=== PATIENT | male | born 1950 | race Caucasian/White ===

== ENCOUNTER → 2021-03-13 11:13 | Outpatient (CLI) | payer MEDICARE, SELFPAY ==
--- NOTE | ~2021-03-13 | XR_ITS ---
EXAMINATION: XR hip RT min 2V DATE: 03/13/2021 11:24 INDICATION: Right hip pain. TECHNIQUE: 3 views of right hip were obtained. COMPARISON: None. FINDINGS: Bone alignment is normal. No fracture. There is an old healed fracture of femoral diaphysis . There is mild right hip osteoarthritis. IMPRESSION: 1. Mild right hip osteoarthritis. Reviewed, dictated and finalized at location A.
== END ==
PROVIDERS: PCP Internal Medicine; Visit Provider Internal Medicine
DX: M25.551 Pain in right hip (principal); M16.11 Unilateral primary osteoarthritis, right hip
CPT/HCPCS: 73502

== ENCOUNTER → 2021-08-13 14:19 | Outpatient (CLI) | payer MEDICARE, SELFPAY ==
--- NOTE | ~2021-08-13 | XR_ITS ---
XR shoulder RT min 2V 08/13/2021 14:40 Indication: Right shoulder pain. Procedure: 4 views of the right shoulder Comparison: No prior studies for comparison. Findings: No fracture, subluxation or dislocation. There are mild degenerative changes of the glenohu meral joint. Surrounding osseous structures and soft tissues are unremarkable. The lungs are unremark able. Impression: 1: Mild osteoarthritis of the glenohumeral joint. Reviewed, dictated and finalized at location A. Impression: 1: Mild osteoarthritis of the glenohumeral joint.
== END ==
PROVIDERS: PCP Family Medicine; Visit Provider Family Medicine
DX: M19.011 Primary osteoarthritis, right shoulder (principal)
CPT/HCPCS: 73030

== ENCOUNTER → 2021-09-18 17:45 | Outpatient (CLI) | payer MEDICARE, SELFPAY ==
--- NOTE | ~2021-09-18 | MR_ITS ---
EXAMINATION: MR shoulder RT wo con DATE: 09/18/2021 19:00 INDICATION: Right shoulder pain TECHNIQUE: Magnetic resonance imaging (MRI) of the right shoulder was performed without intravenous c ontrast. Sequences included axial PD-weighted FS FSE, coronal oblique PD-weighted FS FSE, coronal obl ique T2-weighted FS FSE, sagittal PD-weighted FS FSE, and sagittal T1-weighted SE. COMPARISON: None. FINDINGS: Evaluation is limited by mild motion artifact or blurring to some degree on all sequences. Coracoacromial arch: The acromion undersurface is curved in morphology (type II). There is thickening of the coracoacromia l ligament. Moderate acromioclavicular osteoarthritis. Rotator cuff: Moderate supraspinatus and infraspinatus tendinopathy. There is a large articular sided tear involvin g from one half to two thirds of the thickness of the foot with of both tendons. There appears likely to be full-thickness component to the tear with involvement of small portion of the articular side o f the conjoined portion of the tendon. The torn articular sided the tendons are retracted approximate ly 5 cm medially positioned along the level of the rim of the glenoid. The teres minor tendon is norm al. Severe subscapularis tendinopathy with additional partial tear involving the cephalad third of th e tendon. There is a ragged tear margin with residual frayed tendon material extending up to 1.5 cm m edially from the lesser tuberosity. There is mild fatty atrophy of the infraspinatus muscle belly and to lesser degree the supraspinatus and subscapularis muscle bellies. There is relatively prominent f eathery edema involving the infraspinatus muscle belly suggesting acute blood moderate grade muscle s train. Biceps tendon, glenoid labrum and glenohumeral cartilage: Tendinopathy and partial-thickness tear of the intra-articular portion of the long head biceps tendon which appears attenuated. The humeral cartilage and glenoid labrum appear normal although sensitivit y is mildly decreased by the motion. Fluid: Small glenohumeral joint effusion. There is increased fluid in the subacromial/subdeltoid bursa which could be due to bursitis or communication of joint fluid through the suspected full-thickness compon ent to the rotator cuff tear. No loose osteochondral bodies. Bones: Normal marrow signal with no edema, fracture or abnormal marrow replacing process. Mild cystic change at the lesser tuberosity likely related to the subscapularis tendon disease. IMPRESSION: 1. Large moderate to severe articular sided tear of the supraspinatus and infraspinatus tendons with likely small full-thickness component at the conjoined portion of the tendons which is likely chronic given the associated mild fatty atrophy but with likely more acute low to moderate grade strain of t he infraspinatus muscle belly accounting for the muscular edema. 2. Ragged partial tear involving the cephalad third of the subscapularis tendon located approximately 1.5 cm from the lesser tuberosity. 3. Moderate acromioclavicular osteoarthritis. 4. Evaluation mildly limited by mild motion artifact or blurring on all sequences. Reviewed, dictated and finalized at location B. IMPRESSION: 1. Large moderate to severe articular sided tear of the supraspinatus and infra spinatus tendons with likely small full-thickness component at the conjoined po rtion of the tendons which is likely chronic given the associated mild fatty at rophy but with likely more acute low to moderate grade strain of the infraspina tus muscle belly accounting for the muscular edema. 2. Ragged partial tear involving the cephalad third of the subscapularis tendon located approximately 1.5 cm from the lesser tuberosity. 3. Moderate acromioclavicu
== END ==
PROVIDERS: PCP Family Medicine; Visit Provider Orthopaedic Surgery
DX: M25.511 Pain in right shoulder (principal); M75.101 Unspecified rotator cuff tear or rupture of right shoulder, not specified as traumatic; M19.011 Primary osteoarthritis, right shoulder
CPT/HCPCS: 73221

== ENCOUNTER 2022-03-14 09:35 | Outpatient (CLI) | payer MEDICARE, SELFPAY ==
[2022-03-14 19:51] LABS: Alanine Aminotransferase 31 U/L (6-50); Albumin Level 4.6 g/dL (3.5-5.1); Alkaline Phosphatase 69 U/L (38-126); Anion Gap 13 mmol/L (8-16); Aspartate Amino Transferase 34 U/L (17-59); Bilirubin,Total 2.1 mg/dL (0.2-1.3); Blood Urea Nitrogen 20 mg/dL (9-20); Calcium 9.2 mg/dL (8.4-10.2); Carbon Dioxide 25 mmol/L (22-30); Chloride 104 mmol/L (98-107); Cholesterol 142 mg/dL (0-200); Estimated Glomerular Filt Rate > 60; Glucose 117 mg/dL (65-110); HDL Direct 37 mg/dL; Potassium 4.3 mmol/L (3.4-5.0); Sodium 142 mmol/L (137-145); Triglycerides 179 mg/dL (<150)
[2022-03-14 20:03] LABS: LDL Cholesterol Direct 70 mg/dL
[2022-03-14 20:23] LABS: Prostate Specific Antigen 4.5 ng/mL (< OR = 4.0)
== END 2022-03-14 09:36 | disposition home or self-care (01) ==
LOC: ANHGOSHLAB 09:37
PROVIDERS: PCP Family Medicine; Visit Provider Family Medicine
DX: E78.2 Mixed hyperlipidemia (principal); I10 Essential (primary) hypertension; Z12.5 Encounter for screening for malignant neoplasm of prostate
CPT/HCPCS: 36415; 80053; 80061; 84153; G0103

== ENCOUNTER → 2022-07-31 12:30 | Outpatient (CLI) | payer MEDICARE, SELFPAY ==
--- NOTE | ~2022-07-31 | XR_ITS ---
XR knee LT 3V DATE: 07/31/2022 12:55 INDICATION: Left knee pain following a fall on 07/28/2022 TECHNIQUE: Honeygo, standing AP, PA and lateral views COMPARISON: None FINDINGS: Prominent enthesopathy of the superior pole of patella at the quadriceps tendon insertion. 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 Patellar fracture is less likely. Mild tricompartment osteoarthritis. No fracture or dislocation or joint effusion, radiopaque intra-articular loose body. No periosteal re action or bone destruction. IMPRESSION: Mild tricompartment osteoarthritis Probable bipartite patella; if there is concern alternatively for lateral patellar fracture, consider further evaluation by CT or MR examination Reviewed, dictated and finalized at location L. LOPE MAKER IMPRESSION: Mild tricompartment osteoarthritis Probable bipartite patella; if there is concern alternatively for lateral mccurdy lar fracture, consider further evaluation by CT or MR examination
== END ==
PROVIDERS: PCP Family Medicine; Visit Provider Family Medicine
DX: M25.562 Pain in left knee (principal); M17.12 Unilateral primary osteoarthritis, left knee
CPT/HCPCS: 73562

== ENCOUNTER 2022-09-19 09:22 | Outpatient (CLI) | payer MEDICARE, SELFPAY ==
[2022-09-23 21:20] LABS: PSA, Free 0.85 ng/mL; Percent Free Prostate Spec Ag 21 % (>25)
== END 2022-09-19 09:23 | disposition home or self-care (01) ==
LOC: ANHGOSHLAB 09:25
PROVIDERS: PCP Family Medicine; Visit Provider Family Medicine
DX: R97.20 Elevated prostate specific antigen [PSA] (principal)
CPT/HCPCS: 36415; 84153; 84154

== ENCOUNTER 2022-12-10 09:22 | Outpatient (CLI) | payer MEDICARE, SELFPAY ==
[2022-12-10 14:46] LABS: Hematocrit 46.9 % (42.0-52.0); Hemoglobin 15.2 g/dL (14.0-18.0); Mean Corpuscular HGB Conc 32.4 g/dl (32-36); Mean Corpuscular Hemoglobin 30.3 pg (26-34); Mean Corpuscular Volume 93.4 fl (80-100); Mean Platelet Volume 10.8 fl (7.4-10.4); Platelet Count Result 178 k/mm3 (150-375); Red Blood Count 5.02 M/mm3 (4.6-6.20); White Blood Count 21.1 K/mm3 (4.5-10.0)
[2022-12-10 19:53] LABS: Monocytes Absolute Manual 0.63 K/mm3 (0.1-0.90); Monocytes Percent Manual 3 % (3-9); Neutrophils Percent Manual 24 % (46-73); Platelet Estimate Adequate (Adequate); Total Cells Counted 100
[2022-12-10 19:54] LABS: Schistocytes None Seen (NORMAL)
== END 2022-12-10 09:23 | disposition home or self-care (01) ==
LOC: ANHGOSHLAB 09:24
PROVIDERS: PCP Family Medicine; Visit Provider Internal Medicine Cardiovascular Disease
DX: I48.91 Unspecified atrial fibrillation (principal)
CPT/HCPCS: 36415; 84443; 85025

== ENCOUNTER 2022-12-25 09:34 | Outpatient (CLI) | payer MEDICARE, SELFPAY ==
--- NOTE | 2022-12-25 09:50 | ECHO_ITS ---
Patient Info Name: Abdi Borjas Age: 72 years : 1950 Gender: Male Ht: 74 in Wt: 250 lbs BSA: 2.46 m2 HR: 61 bpm BP: 154 / 90 mmHg Heart Rhythm: Atrial Fibrillation Technical Quality: Fair Exam Date: 12/25/2022 10:11 AM Exam Location: [facility] Patient Status: Outpatient Admit Date: 12/25/2022 Staff Ordering Physician: Madi Byrne DO Custom Bow Maker: Bina Roberts RDCS Attending Provider: Madi Byrne DO Referring Physician: Chavez CASILLAS; Exam Type: CA echo dop color flow w con Study Info Complete two-dimensional, color flow and Doppler transthoracic echocardiogram is performed with contrast to opacify the left ventricle and to improve the deliniation of the left ventricle endocardial borders. Contrast/Agitated Saline Contrast/Ag. Saline: Definity Amount: 2.00 ml Administered By: Bina Roberts [facility] New IV Access: Left Site Condition: IV removed Summary 1. Definity contrast administered improved wall motion interpretation. 2. Left ventricular chamber dimension is mildly enlarged. 3. Left ventricular systolic function is normal, estimated at 55-60%. 4. The left ventricular diastolic function is abnormal. 5. E/e' 10 is mildly elevated. 6. Atrial fibrillation. 7. Left atrial chamber dimension is moderately enlarged. 8. Right atrial chamber dimension is moderately enlarged. 9. There is mild to moderate aortic valve regurgitation. 10. There is mild mitral valve regurgitation. 11. There is mild tricuspid valve regurgitation. 12. No pulmonary hypertension, estimated pulmonary arterial systolic pressure is 32 mmHg. Left Ventricle E/e' 10 is mildly elevated. Definity contrast administered improved wall motion interpretation. Atrial fibrillation. Left ventricular chamber dimension is mildly enlarged. Left ventricular systolic function is normal, estimated at 55-60%. The left ventricular diastolic function is abnormal. Right Ventricle Right ventricular chamber dimension is normal. Right ventricular systolic function is normal. Left Atria Left atrial chamber dimension is moderately enlarged. Right Atria Right atrial chamber dimension is moderately enlarged. Aortic Valve The aortic valve is trileaflet. There is no aortic valve stenosis. There is mild to moderate aortic valve regurgitation. Pulmonic Valve There is no pulmonic regurgitation. Mitral Valve There is no mitral valve stenosis. There is mild mitral valve regurgitation. Tricuspid Valve There is mild tricuspid valve regurgitation. No pulmonary hypertension, estimated pulmonary arterial systolic pressure is 32 mmHg. Pericardium/Pleural There is no pericardial effusion. Inferior Vena Cava Normal inferior vena cava with >50% collapse upon inspiration consistent with normal right atrial pressure, 5 mmHg. Aorta The aortic root size at the sinus of Valsalva is normal. Left Ventricular Outflow Tract Name Value Normal LVOT 2D LVOT Diameter 2.10 cm LVOT Doppler LVOT Peak Gradient 4 mmHg LVOT Mean Gradient 2 mmHg LVOT VTI 20.19 cm LVOT VTI/AV VTI Ratio
[2022-12-25] MEDS: PERFLUTREN LIPID MICROSPHERES 1.5 ML VIAL DILUTED TO 10 ML TOTAL VOLUME IV PUSH (10:45)
== END 2022-12-25 09:35 | disposition home or self-care (01) ==
PROVIDERS: PCP Family Medicine; Visit Provider Internal Medicine Cardiovascular Disease
DX: I48.91 Unspecified atrial fibrillation (principal); I08.3 Combined rheumatic disorders of mitral, aortic and tricuspid valves
CPT/HCPCS: C8929; Q9957

== ENCOUNTER 2023-06-03 09:43 | Outpatient (CLI) | payer MEDICARE, SELFPAY ==
[2023-06-03 19:25] LABS: Alanine Aminotransferase 32 U/L (6-50); Albumin Level 4.4 g/dL (3.5-5.1); Alkaline Phosphatase 59 U/L (38-126); Anion Gap 9 mmol/L (8-16); Aspartate Amino Transferase 53 U/L (17-59); Blood Urea Nitrogen 22 mg/dL (9-20); Calcium 9.2 mg/dL (8.4-10.2); Carbon Dioxide 29 mmol/L (22-30); Chloride 102 mmol/L (98-107); Cholesterol 132 mg/dL (0-200); Estimated Glomerular Filt Rate > 60; Glucose 100 mg/dL (65-110); HDL Direct 41 mg/dL; Potassium 3.9 mmol/L (3.4-5.0); Sodium 140 mmol/L (137-145); Triglycerides 156 mg/dL (<150)
[2023-06-03 19:36] LABS: LDL Cholesterol Direct 61 mg/dL
== END 2023-06-03 09:44 | disposition home or self-care (01) ==
LOC: ANHGOSHLAB 09:44
PROVIDERS: PCP Family Medicine; Visit Provider Internal Medicine Cardiovascular Disease
DX: E78.2 Mixed hyperlipidemia (principal)
CPT/HCPCS: 36415; 80053; 80061

== ENCOUNTER 2023-11-05 09:40 | Outpatient (CLI) | payer MEDICARE, SELFPAY ==
--- NOTE | ~2023-11-05 | XR_ITS ---
Right Knee Technique: AP, lateral, and sunrise views were obtained. Clinical History: Pain Findings: No fracture or dislocation is seen. Osseous alignment is anatomic. There is mild to moderat e tricompartmental degenerative change. Soft tissues are unremarkable. No joint effusion is seen. Impression: Mild to moderate tricompartmental degenerative change. Reviewed, dictated and finalized at location . Impression: Mild to moderate tricompartmental degenerative change.
== END 2023-11-05 09:41 ==
LOC: GOSHIMG 09:42
PROVIDERS: PCP Family Medicine; Visit Provider Family Medicine
DX: M25.561 Pain in right knee (principal); R93.6 Abnormal findings on diagnostic imaging of limbs
CPT/HCPCS: 73564

== ENCOUNTER 2024-02-24 12:41 | Emergency (ER) | payer MEDICARE, SELFPAY ==
[2024-02-24 12:53] VITALS: BP 115/69; PULSE 80; RESP 16; TEMP 36.6; O2SAT 98
[2024-02-24 13:11] LABS: EDSTREPNEGPOS1 Negative (Negative)
--- NOTE | 2024-02-24 13:11 | ED.URI ---
HPI - URI/Sore Throat General Chief Complaint: Upper Respiratory Infection Stated Complaint: SORE THROAT Time Seen by Provider: 02/24/24 13:07 Source: patient and RN notes reviewed Mode of arrival: ambulatory Limitations: no limitations History of Present Illness HPI Narrative: Patient presents today complaining of a mild sore throat and nasal congestion since yesterday morning. States sore throat is significantly improved since yesterday. Denies any additional symptoms. Currently rates his pain 2/10 and took an [id number] medicine this morning which did provide some relief. States girlfriend was diagnosed with strep throat today and wanted to come in for evaluation. Related Data Home Medications Medication Instructions Recorded Confirmed zinc 50 mg tablet 50 mg PO DAILY 08/02/20 02/16/24 meloxicam 7.5 mg tablet 7.5 mg PO .prn 11/24/23 02/16/24 Allergies Allergy/AdvReac Type Severity Reaction Status Date / Time No Known Allergies Allergy Verified 02/24/24 13:09 Review of Systems Review of Systems: CONSTITUTIONAL: Denies body aches, fever, chills, or sweats. EYES: Denies visual changes, redness, or discharge. ENT: Denies rhinorrhea, or otalgia.+ congestion, sore throat CARDIOVASCULAR: Denies chest pain, palpitations, or edema. RESPIRATORY: Denies cough or dyspnea. GASTROINTESTINAL: Denies abdominal pain, nausea, vomiting, or diarrhea. GENITOURINARY: Denies dysuria or hematuria. SKIN: Denies rash, itching, or wounds. MUSCULOSKELETAL: Denies back pain, joint pain, or myalgia. NEUROLOGIC: Denies headache, numbness, tingling, or weakness. PSYCH: Denies depression or anxiety. [facility] Past Medical History Medical History Achilles tendinitis of left lower extremity Acute pain of both knees Ankle pain, left Degenerative rupture of left Achilles tendon Hip pain, bilateral Hip pain, right Hyperlipidemia, mixed Pain in both hands Right shoulder pain Right tennis elbow Rotator cuff tear, right Shoulder pain, acute Family History Family History Mother Hypertension Patient's mother is Father Family history of respiratory disorder Other Depression Social History Social History Smoking status: Never smoker Alcohol intake: current Substance use: never Substance use type: does not use Do You Feel Safe in your Home?: Yes Lack of Transportation: No Lack of Food: Never True Current Housing: I Have Housing Concerned About Future Housing: No Difficulty Paying Gas/Electric Bills: No Difficulty Paying for Meds: No Currently Unemployed: No Education: Bachelor's Degree Difficulty w/ Childcare or Family Care: No Living arrangements: with family Occupation/Education: retired Gender identity (if verbalized by the patient): Male Agree to blood products: Yes Comments At time of signature, I have reviewed and agree with nursing past medical, surgical, social and family history unless otherwise noted. Please see nursing chart for further information. There is no relevant family history pertinent to the presenting complaint Exam Narrative: GENERAL: Well-appearing, well-nourished, and in no acute distress. HEAD: Normocephalic, atraumatic. EYES: EOMI. No redness or drainage. Conjunctivae normal. ENT: Mucous membranes pink and moist. Nares clear. No rhinorrhea. TMs normal bilaterally. Throat mildly erythematous without edema or exudate. Uvula midline. NECK: Normal AROM. Supple. No lymphadenopathy. CHEST: No respiratory distress. Clear to auscultation. HEART: Regular rate and rhythm. No murmur appreciated. EXTREMITIES: Normal range of motion. No edema. SKIN: Warm, dry, no rash. Capillary refill normal. Normal skin turgor. NEURO: No focal deficits. Alert and oriented x3.
== END 2024-02-24 13:16 | disposition home or self-care (01) ==
PROVIDERS: Emergency Provider Nurse Practitioner; PCP Family Medicine
DX: J02.9 Acute pharyngitis, unspecified (principal); E78.2 Mixed hyperlipidemia
CPT/HCPCS: 87081; 87880; 99213; G0463

== ENCOUNTER 2024-05-05 09:42 | Outpatient (CLI) | payer MEDICARE, SELFPAY ==
[2024-05-05 13:56] LABS: Alanine Aminotransferase 27 U/L (6-50); Albumin Level 4.6 g/dL (3.5-5.1); Alkaline Phosphatase 55 U/L (38-126); Anion Gap 5 mmol/L (4-12); Aspartate Amino Transferase 72 U/L (17-59); Bilirubin,Total 1.6 mg/dL (0.2-1.3); Blood Urea Nitrogen 20 mg/dL (9-20); Calcium 9.6 mg/dL (8.4-10.2); Carbon Dioxide 31 mmol/L (22-30); Chloride 103 mmol/L (98-107); Cholesterol 152 mg/dL (0-200); Estimated Glomerular Filt Rate > 60; Glucose 99 mg/dL (65-110); HDL Direct 45 mg/dL; Sodium 139 mmol/L (137-145); Triglycerides 156 mg/dL (<150)
[2024-05-05 14:07] LABS: LDL Cholesterol Direct 69 mg/dL
[2024-05-05 14:25] LABS: Prostate Specific Antigen 4.9 ng/mL (< OR = 4.0)
[2024-05-05 14:31] LABS: Basophils Absolute Auto 0.1 K/mm3 (0.0-0.1); Basophils Percent Auto 0.2 % (0.2-1.2); Eosinophils Absolute Auto 0.1 K/mm3 (0-0.3); Eosinophils Percent Auto 0.4 % (0-4.4); Hematocrit 50.9 % (42.0-52.0); Hemoglobin 16.5 g/dL (14.0-18.0); Immature Granulocyte Absolute 0.07 K/mm3 (0.00-0.031); Immature Granulocyte Percent A 0.3 % (0-0.5); Lymphocytes Percent Auto 66.9 % (18.3-44.2); Mean Corpuscular HGB Conc 32.4 g/dl (32-36); Mean Corpuscular Hemoglobin 29.8 pg (26-34); Mean Platelet Volume 10.5 fl (7.4-10.4); Monocytes Absolute Auto 0.8 K/mm3 (0.1-0.6); Monocytes Percent Auto 3.2 % (2.6-8.5); Neutrophils Absolute Auto 7.2 K/mm3 (1.3-6.7); Platelet Count Result 210 k/mm3 (150-375); Red Blood Count 5.53 M/mm3 (4.6-6.20); Red Cell Distribution Width 13.3 % (11.5-14.5); White Blood Count 24.8 K/mm3 (4.5-10.0)
[2024-05-05 14:56] LABS: Chlamydia trachomatis NOT DETECTED (NOT DETECTE); Neisseria gonorrhoeae PCR NOT DETECTED (NOT DETECTE)
[2024-05-05 15:03] LABS: Platelet Estimate Adequate (Adequate); Schistocytes None Seen
[2024-05-05 15:04] LABS: Atypical Lymphocytes Present; Smudge Cells PRESENT
[2024-05-06 06:54] LABS: Rapid Plasma Reagin Non-Reactive (NonReactive)
== END 2024-05-05 09:43 | disposition home or self-care (01) ==
PROVIDERS: PCP Family Medicine; Visit Provider Family Medicine
DX: R53.83 Other fatigue (principal); Z13.228 Encounter for screening for other metabolic disorders; Z12.5 Encounter for screening for malignant neoplasm of prostate; Z72.51 High risk heterosexual behavior; Z13.220 Encounter for screening for lipoid disorders
CPT/HCPCS: 36415; 80053; 80061; 84153; 85025; 86592; 86695; 86696; 87491; 87591; G0103

== ENCOUNTER 2024-05-05 10:00 | Outpatient (CLI) | payer MEDICARE, SELFPAY ==
--- NOTE | ~2024-05-05 | XR_ITS ---
EXAMINATION: XR knee LT min 4V DATE: 05/05/2024 10:14 INDICATION: Left knee pain. TECHNIQUE: 4 views of left knee increasing standing views were obtained. COMPARISON: Left knee radiographs 07/31/2022 FINDINGS: Alignment is normal. No fracture. There is moderate osteoarthritis of medial compartment an d mild osteoarthritis of lateral and patellofemoral compartments. No knee joint effusion. IMPRESSION: 1. Moderate left knee osteoarthritis. Reviewed, dictated and finalized at location A. LOPER DESIGNER
== END 2024-05-05 10:01 | disposition home or self-care (01) ==
LOC: GOSHIMG 10:01
PROVIDERS: PCP Family Medicine; Visit Provider Family Medicine
DX: M17.12 Unilateral primary osteoarthritis, left knee (principal)
CPT/HCPCS: 73564

== ENCOUNTER 2024-07-20 11:22 | Outpatient (CLI) | payer MEDICARE, SELFPAY ==
[2024-07-20 11:46] LABS: Basophils Absolute Auto 0.1 K/mm3 (0.0-0.1); Basophils Percent Auto 0.3 % (0.2-1.2); Eosinophils Absolute Auto 0.1 K/mm3 (0-0.3); Eosinophils Percent Auto 0.5 % (0-4.4); Hematocrit 47.4 % (42.0-52.0); Hemoglobin 15.7 g/dL (14.0-18.0); Immature Granulocyte Absolute 0.07 K/mm3 (0.00-0.031); Immature Granulocyte Percent A 0.3 % (0-0.5); Lymphocytes Absolute Auto 13.81 K/mm3 (0.9-3.2); Lymphocytes Percent Auto 65.6 % (18.3-44.2); Mean Corpuscular HGB Conc 33.1 g/dl (32-36); Mean Corpuscular Hemoglobin 29.6 pg (26-34); Mean Corpuscular Volume 89.4 fl (80-100); Mean Platelet Volume 9.9 fl (7.4-10.4); Monocytes Absolute Auto 0.9 K/mm3 (0.1-0.6); Neutrophils Absolute Auto 6.2 K/mm3 (1.3-6.7); Neutrophils Percent Auto 29.3 % (45.5-73.1); Platelet Count Result 221 k/mm3 (150-375); Red Cell Distribution Width 13.7 % (11.5-14.5); White Blood Count 21.1 K/mm3 (4.5-10.0)
--- OUTSIDE RECORDS SUMMARY | 2024-07-20 13:18 | XMS_ITS | Patient Health Summary ---
Author Organization [facility] Address [address] [place] [address] Care Team Providers Care Hedis Review Nurse Name Role Phone Abdi Patel MD Primary Care Provider Note from [facility],non-owned Affiliates and Associated Physician Practices is amultiple site organization consisting of ambulatory clinics and hospital sitesin [place], [place], [place] and [place]. This disclosure is being madepursuant to the Care Everywhere program and may not contain all information available regarding this patient. Last updated 18.[facility] Immunizations * HEP A VACCINE, ADULT(Given 01/27/2016) * HEP B VACCINE ADOL/ADULT 2 DOSE(Given 01/27/2016) * HEP B VACCINE, ADULT 3 DOSE(Given 03/03/2016) * INFLUENZA VACCINE, HIGH-DOSE, QUADR. (FLUZONE HIGH-DOSE QUADRIVALENT; 65Y+), 0.7 ML (HD-IIV4)(Given 01/27/2016) Social History Tobacco Use Types Packs/Day Years Used Date Smoking Tobacco: Never Assessed Sex and Gender Information Value Date Recorded Sex Assigned at Not on file Gender Identity Not on file Sexual Orientation Not on file Care Teams Hedis Review Nurse Relationship Specialty Start Date End Date Abdi Paetl MD [address] [place] [address] PCP - General Internal Medicine 01/27/16
--- OUTSIDE RECORDS SUMMARY | 2024-07-20 13:18 | XMS_ITS | Referral Summary ---
Author Organization [facility] Address [address] [place] [address] Care Team Providers Care Machine Clothing Replacer Name Role Phone Abdi Patel MD Primary Care Provider [phone] Source Comments [facility],non-owned Affiliates and Associated Physician Practices is amultiple site organization consisting of ambulatory clinics and hospital sitesin [place], [place], [place] and [place]. This disclosure is being madepursuant to the Care Everywhere program and may not contain all information available regarding this patient. Last updated 18.[facility] Immunizations Name Administration Dates Next Due HEP A VACCINE, ADULT 01/27/2016 HEP B VACCINE ADOL/ADULT 2 DOSE 01/27/2016 HEP B VACCINE, ADULT 3 DOSE 03/03/2016 INFLUENZA VACCINE, HIGH-DOSE , QUADR. (FLUZONE HIGH-DOSE QUADRIVALENT; 65Y+), 0.7 ML (HD-IIV4) 01/27/2016 Social History Tobacco Use Types Packs/Day Years Used Date Smoking Tobacco: Never Assessed Sex and Gender Information Value Date Recorded Sex Assigned at Not on file Gender Identity Not on file Sexual Orientation Not on file Plan of Treatment Not on file Care Teams Machine Clothing Replacer Relationship Specialty Start Date End Date Abdi Patel MD [address] [place] [address] PCP - General Internal Medicine 01/27/16
--- OUTSIDE RECORDS SUMMARY | 2024-07-20 13:18 | XMS_ITS | Encounter Summary ---
Author Organization [facility] ([facility] Address [address] [place] [address] Care Team Providers Care Graduate Studies Dean Name Role Phone Unavailable Primary Care Provider Unavailabl e Reason for Visit * Reason Comments Establish Care Encounter Details Date Type Department Care Team (Late st Contact Info) Description 07/20/2024 10:30 AM UPHOLSTERY TECHNICIAN Office Visit [facility] Oncology and Hematology - [place] [address] [place] [address] [facility] [address] [place] [address] Galen Velasquez MD [address] [facility] [address] [place] [address] Lymphocytosis (Primary Dx) Social History Tobacco Use Types Packs/Day Years Used Date Smoking Tobacco: Never Smokeless Tobacco: Never Alcohol Use Standard Drinks/Week Comments Yes 0 (1 standard drink = 0.6 oz pur e alcohol) Occasionally Sex and Gender Information Value Date Recorded Sex Assigned at Not on file Legal Sex Male 2:50 PM UPHOLSTERY TECHNICIAN Gender Identity Not on file Sexual Orientation Not on file documented as of this encounter Last Filed Vital Signs Vital Sign Reading Time Taken Comments Blood Pressure 137/86 07/20/2024 10:38 AM UPHOLSTERY TECHNICIAN Pulse 69 07/20/2024 10:38 AM UPHOLSTERY TECHNICIAN Temperature 36.5 C (97.7 F) 07/20/2024 10:38 AM UPHOLSTERY TECHNICIAN Respiratory Rate 15 07/20/2024 10:38 AM UPHOLSTERY TECHNICIAN Oxygen Saturation 96% 07/20/2024 10:38 AM UPHOLSTERY TECHNICIAN Inhaled Oxygen Concentration - - Weight 113.4 kg (250 lb) 07/20/2024 10:38 AM UPHOLSTERY TECHNICIAN Height 188 cm (6' 2 ) 07/20/2024 10:38 AM UPHOLSTERY TECHNICIAN Body Mass Index 32.1 07/20/2024 10:38 AM UPHOLSTERY TECHNICIAN documented in this encounter Progress Notes * Galen Velasquez MD - 07/20/2024 11:38 AM CST Hematology-oncology consult Note Requesting Physician Stef Frank MD Primary Care Physician No primary care provider on file. Problem list There is no problem list on file for this patient. Previous TREATMENT ? Measurable Disease ? Reason for Visit Abdi Borjas is a 74 y.o. male who was referred for consultation for lymphocytosis. History of present illness Patient is a pleasant 74-year-old male with history of atrial fibrillation and hypertension had routine labs done in April 2024 that showed elevated WBC count of 24,800 and lymphocyte percent of 66.9. He has some night sweats. Denies any fevers and chills. He has intentionally lost 20 pound weight. Complain of some left shoulder pain and bilateral knee arthralgia. Continue patient hehad viral infection right after the labs were drawn in April of last year. He denies any new lumps bumps and lymphadenopathy. Denies any other new complaints. Past Medical History Past Medical History: Diagnosis Date A-fib (CMS/HCC) Hyperlipidemia Hypertension Surgical History Past Surgical History: Procedure Laterality Date HX HERNIA REPAIR Double Hernia-2003 Medications Current Outpatient Medications Medication Sig Dispense Refill losartan (COZAAR) 100 mg tablet Take 1 Tablet by mouth daily. Xarelto 20 mg Tablet Take 20 mg by mouth daily with supper. MULTIVITAMIN ORAL Take by mouth daily. ZINC GLUCONATE ORAL Take by mouth daily. OMEGA-3 FATTY ACIDS-FISH OIL ORAL Take by mouth daily. CALCIUM CARBONATE-VITAMIN D3 ORAL Take by mouth daily. ascorbic acid (VITAMIN C ORAL) Take by mouth daily. Vitamin C&D No current facility-administered medications for this visit. Allergies No Known Allergies Immunizations: There is no immunization history on file for this patient. Family History Family History Problem Relation Name Age of Onset No Known Problems Father No Known Problems Mother No Known Problems Sister No Known Problems Son No Known Problems Son No Known Problems Daughter Social History Social History Tobacco Use Smoking status: Never Smokeless tobacco: Never Substance Use Topics Alcohol use: Yes Comment: Occasionally Review of Systems Constitutional: Patient did not mention fever; occasional night sweats; no anorexia; 20 pound intentional weight loss; no fatique NEENT: Patient did not mention headache; no change in vision; no change in hearing; no sore throat;no dysphagia Respiratory: Patient did not mention shortness of breath; no pleuritic chest pain; no cough; no hemoptysis Cardiac: Patient did not mention cardiac-like chest pain; no palpitations; no orthopnea; no PND; noDOE GI: Patient did not mention abdominal pain; no nausea; no vomiting; no diarrhea; no hematochezia; no melena : Patient did not mention dysuria; no frequency; no hesitancy; no hematuria MECHANICAL LEAD: Musculosketetal: Patient did not mention bone pain; no arthralgia; no joint swelling; no myalgia; Skin: Patient did not mention pruritis; no rash; no petechiae; no ecchymoses Endocrine: Patient did not mention polydipsia; no polyuria; no unusual weight gain Neuro: Patient did not mention headache; no change in vision; no sensory changes; no muscle weakness; no confusion; no seizures Psych: Patient did not mention anxiety; no depression; Physical Exam Vitals: As per nursing note Constitutional: Well developed, well nourished, no acute distress, non-toxic appearance Teeth and gum. No signs of infection or swelling. Eyes: PERRL, conjunctiva normal HEENT: Atraumatic, external ears normal, nose normal, oropharynx moist, no pharyngeal exudates. no sinus tenderness Neck- normal range of motion, no tenderness, supple Respiratory: No respiratory distress, normal breath sounds, no rales, no wheezing Cardiovascular: Normal rate, normal rhythm, no murmurs, no gallops, no rubs GI: Soft, nondistended, normal bowel sounds, nontender, no splenomegaly, no hepatomegaly, no mass, no rebound, no guarding : No costovertebral angle tenderness Musculoskeletal: No edema, no tenderness, no deformities. Back- no tenderness Integument: Well hydrated, no rash, Digits and nails inspection normal Lymphatic: No lymphadenopathy noted Neurologic: Alert & oriented x 3, CN 2-12 normal, normal motor function, normal sensory function, no focal deficits noted Psychiatric: Speech and behavior appropriate ? labs No results found for this or any previous visit (from the past 24 hours). Labs from May 05, 2024 showed WBC count 24.8 hemoglobin 16.5 MCV 92 platelet count 210,000 neutrophils 29% lymphocyte 66.9% Pathology ? Imaging & Other Studies Performance Status? Assessment / Plan: ? Leukocytosis with lymphocytosis. Patient is a pleasant 74-year-old male who has been in good health except history of hypertension and hyperlipidemia had routine labs done in April 2024 that showed elevated WBC count and lymphocyte count. Clinically he has some night sweats and had lost 20 pound weight intentionally last year. On my examination there is no evidence of lymphadenopathyand hepatosplenomegaly. I have reviewed the labs with the patient and discussed the differential diagnosis that includes lymphoproliferative disorder like chronic lymphocytic leukemia versus infection especially with a viral infection. I will order the test that we will include CBC with differential, CMP, C-reactive protein and flow cytometric analysis for leukemia. I have informed that this is alikelihood of CLL which is a low-grade leukemia and many times just require observation if patient is asymptomatic. I have answered all the questions to patient satisfaction. Follow-up with me in 3 we eks. Atrial fibrillation. Patient is on Xarelto. Hypertension. Patient is on losartan. Thank you very much for allowing me to participate in Abdi Borjas's evaluation and management. Please feel free to contact if I can be of any further assistance in your patient???s care requiring hematology or oncology evaluation. Sincerely, ? ? Galen Velasquez M.D. cell TOBACCO COUNSELING He is not a tobacco/nicotine user. Galen Velasquez MD ,07/20/2024 11:38 AM ? Total time spent 60 minutes, two third of the total time spent counseling patient [id number]. CC:?Stef Frank MD LSTERY TECHNICIAN documented in this encounter Plan of Treatment Upcoming Encounters Date Type Department Care Team (Late st Contact Info) Description 08/03/2024 11:30 AM CDT Office Visit [facility] Oncology and Hematology - [place] [address] [place] [address] Galen Velasquez MD [address] [facility] [address] [facility] [address] [place] [address] Scheduled Orders Name Type Priority Associated Diagnoses Orde r Schedule CBC WITH DIFFERENTIAL Lab Stat Lymphocytosis Expected: 07/20/2024, Expires: 07/20/2025 COMPREHENSIVE METABOLIC PANEL Lab Stat Lymphocytosis Expected: 07/20/2024, Expires: 07/20/2025 C-REACTIVE PROTEIN Lab Routine Lymphocytosis Expected: 07/20/2024, Expires: 07/20/2025 FLOW CYTOMETRY PANEL Lab Routine Lymphocytosis Expected: 07/20/2024, Expires: 07/20/2025 LACTATE DEHYDROGENASE Lab Routine Lymphocytosis Expected: 07/20/2024, Expires: 07/20/2025 documented as of this encounter Visit Diagnoses Diagnosis Lymphocytosis- Primary Lymphocytosis (symptomatic) documented in this encounter
--- OUTSIDE RECORDS SUMMARY | 2024-07-20 13:18 | XMS_ITS | Clinical Summary ---
Author Organization [facility] Address [address] [facility] [place] [address] Care Team Providers Care Government Guard Name Role Phone Unavailable Primary Care Provider Unavailabl e Allergies No known active allergies Medications losartan (COZAAR) 100 mg tablet Take 1 Tablet by mouth daily. 05/26/2024 Active Xarelto 20 mg Tablet Take 20 mg by mouth daily with supper. 05/20/2024 Active MULTIVITAMIN ORAL Take by mouth daily. Active ZINC GLUCONATE ORAL Take by mouth daily. Active OMEGA-3 FATTY ACIDS-FISH OIL ORAL Take by mouth daily. Active CALCIUM CARBONATE-VITAM IN D3 ORAL Take by mouth daily. Active ascorbic acid (VITAMIN C ORAL) Take by mouth daily. Vitamin C&D Active Active Problems No known active problems Encounters Date Type Department Care Team Description 07/20/2024 10:30 AM CENTRIFUGAL SEPARATOR Office Visit [facility] Oncology and Hematology - [place] [address] [facility] [address] [place] [address] Galen Velasquez MD Lymphocytosis (Primary Dx) from Last 3 Months Family History Medical History Relation Name Comments No Known Problems Daughter No Known Problems Father No Known Problems Mother No Known Problems Sister No Known Problems Son 1 No Known Problems Son 2 Relation Name Status Comments Daughter Alive Father Mother Sister Alive Son 1 Alive Son 2 Alive Social History Tobacco Use Types Packs/Day Years Used Date Smoking Tobacco: Never Smokeless Tobacco: Never Alcohol Use Standard Drinks/Week Comments Yes 0 (1 standard drink = 0.6 oz pur e alcohol) Occasionally Sex and Gender Information Value Date Recorded Sex Assigned at Not on file Legal Sex Male 2:50 PM CENTRIFUGAL SEPARATOR Gender Identity Not on file Sexual Orientation Not on file Last Filed Vital Signs Vital Sign Reading Time Taken Comments Blood Pressure 137/86 07/20/2024 10:38 AM CENTRIFUGAL SEPARATOR Pulse 69 07/20/2024 10:38 AM CENTRIFUGAL SEPARATOR Temperature 36.5 C (97.7 F) 07/20/2024 10:38 AM CENTRIFUGAL SEPARATOR Respiratory Rate 15 07/20/2024 10:38 AM CENTRIFUGAL SEPARATOR Oxygen Saturation 96% 07/20/2024 10:38 AM CENTRIFUGAL SEPARATOR Inhaled Oxygen Concentration - - Weight 113.4 kg (250 lb) 07/20/2024 10:38 AM CENTRIFUGAL SEPARATOR Height 188 cm (6' 2 ) 07/20/2024 10:38 AM CENTRIFUGAL SEPARATOR Body Mass Index 32.1 07/20/2024 10:38 AM CENTRIFUGAL SEPARATOR Plan of Treatment Upcoming Encounters Date Type Department Care Team (Late st Contact Info) Description 08/03/2024 11:30 AM CDT Office Visit [facility] Oncology and Hematology [facility] [address] [facility] [address] [place] [address] Galen Velasquez MD [address] [facility] [address] [place] [address] Health Maintenance Due Date Last Done Comments DTAP/TDAP/TD VACCINES (1 - Tdap) 1967 PNEUMOCOCCAL VACCINE 65+ YEARS (1 of 1 - PCV) 03/05/19 98 ZOSTER VACCINE (1 of 2) 1998 RSV VACCINE (60+ or ) (1 - 1-dose 75+ series) 2023 INFLUENZA VACCINE (#1) 2023 01/27/2016 Medicare [place]age ([place]) Prev entative Visit/Annual Wellness Visit 05/25/2024 Insurance [facility] [id number] [place] [id number]
--- OUTSIDE RECORDS SUMMARY | 2024-07-20 13:18 | XMS_ITS | Clinical Summary ---
Author Organization [facility] Address [address] [facility] [place] [address] Care Team Providers Care Network Security Architect Name Role Phone Abdi Patel MD Primary Care Provider Source Comments [facility],non-owned Affiliates and Associated Physician Practices is amultiple site organization consisting of ambulatory clinics and hospital sitesin [place], [place], [place] and [place]. This disclosure is being madepursuant to the Care Everywhere program and may not contain all information available regarding this patient. Last updated 18.[facility] Immunizations Name Administration Dates Next Due HEP [...] Orientation Not on file Plan of Treatment Health Maintenance Due Date Last Done Comments HEPATITIS C SCREENING 03/01/1966 DTAP/TDAP/TD VACCINES (1 - Tdap) 1967 PNEUMOCOCCAL VACCINE 50+ (1 of 1 - PCV) 1998 ZOSTER VACCINE (1 of 2) 1998 HEPATITIS B VACCINE (3 of 3 - Risk 3-dose series) 07/26/2016 03/03/2016, 01/27/2016 Respiratory Syncytial Virus (RSV) Vaccine Pt: or over 60 yrs (1 - 1-dose 75+ series) 2023 COVID-19 VACCINE (1 - 2023-2 5 season) 2024 INFLUENZA VACCINE (#1) 2024 01/27/2016 DEPRESSION SCREENING 05/25/2024 MEDICARE AWV CALENDAR YEAR 2024 HIB VACCINE Aged Out No longer eligi ble based on patient's age to complete this topic HPV VACCINE Aged Out No longer eligi ble based on patient's age to complete this topic MENINGOCOCCAL (Group B) VACCINE Aged Out No longer eligible b ased on patient's age to complete this topic MENINGOCOCCAL VACCINE Aged Out No jennifer brendan eligible based on patient's age to complete this topic Care Teams Network Security Architect Relationship Specialty Start Date End Date Abdi Patel MD [address] [place] [address] PCP - General Internal Medicine 01/27/16
[2024-07-20 13:48] LABS: Alanine Aminotransferase 22 U/L (6-50); Albumin Level 4.3 g/dL (3.5-5.1); Alkaline Phosphatase 62 U/L (38-126); Anion Gap 8 mmol/L (4-12); Aspartate Amino Transferase 28 U/L (17-59); Bilirubin,Total 1.2 mg/dL (0.2-1.3); Blood Urea Nitrogen 26 mg/dL (9-20); CRP 0.6 mg/dL (<1.0); Calcium 9.6 mg/dL (8.4-10.2); Carbon Dioxide 26 mmol/L (22-30); Chloride 105 mmol/L (98-107); Estimated Glomerular Filt Rate > 60; Glucose 95 mg/dL (65-110); Lactate Dehydrogenase 188 U/L (120-246); Potassium 4.7 mmol/L (3.4-5.0); Sodium 139 mmol/L (137-145)
== END 2024-07-20 11:23 | disposition home or self-care (01) ==
LOC: ANHLAB 11:23
PROVIDERS: PCP Emergency Medicine; Visit Provider Internal Medicine Hematology & Oncology
DX: D72.820 Lymphocytosis (symptomatic) (principal); Z98.1 Arthrodesis status
CPT/HCPCS: 36415; 80053; 83615; 85025; 86140; 88184

== ENCOUNTER 2024-07-20 16:18 | Emergency (ER) | payer MEDICARE, SELFPAY ==
[2024-07-20 16:35] VITALS: BP 158/69; PULSE 61; RESP 15; TEMP 36.7; O2SAT 99
--- NOTE | 2024-07-20 16:38 | ED_ITS ---
HPI - Recheck/Abnormal Lab/Rx General Chief Complaint: Recheck/Abnormal Lab/Rx Stated Complaint: high white blood cell count Time Seen by Provider: 07/20/24 16:38 Focused HPI: This is a 74 year old male that presents to the ER for elevated white blood cell count. Reports this has been ongoing over the last couple of months. Reports he saw Dr. Velasquez today for evaluation. His doctor called today and they told him to go to the ER. He does not have any symptoms currently. GENERAL: Well-appearing, well-nourished, and in no acute distress. HEAD: Normocephalic, atraumatic. CHEST: Clear to auscultation. ?No respiratory distress. HEART: Regular rate and rhythm.? NEURO: ?Alert and oriented x3. Patient screened in triage and initial orders placed.? ?Additional care and disposition to be based upon?diagnostic testing and treatment. Related Data Home Medications ?Medication ?Instructions ?Recorded ?Confirmed ?Last Taken ?Type zinc 50 mg tablet 50 mg PO DAILY 08/02/20 06/17/24 Unknown History Allergies Allergy/AdvReac Type Severity Reaction Status Date / Time No Known Allergies Allergy Verified 07/20/24 16:21 Review of Systems Review of Systems: CONSTITUTIONAL: Denies fever ENT: Denies rhinorrhea, congestion, sore throat RESPIRATORY: Denies cough GASTROINTESTINAL: Denies abdominal pain, nausea, vomiting, or diarrhea. GENITOURINARY: Denies dysuria All systems reviewed & are unremarkable except as noted in HPI and below PMFSH Past Medical History Medical History Degenerative rupture of left Achilles tendon Achilles tendinitis of left lower extremity Rotator cuff tear, right Right shoulder pain Shoulder pain, acute Ankle pain, left Hip pain, right Hip pain, bilateral Acute pain of both knees Hyperlipidemia, mixed Pain in both hands Right tennis elbow Family History Family History Mother Hypertension Patient's mother is Father Family history of respiratory disorder Other Depression Social History Social History Smoking status: Never smoker Alcohol intake: current Substance use: never Substance use type: does not use Do You Feel Safe in your Home?: Yes Lack of Transportation: No Lack of Food: Never True Current Housing: I Have Housing Concerned About Future Housing: No Difficulty Paying Gas/Electric Bills: No Difficulty Paying for Meds: No Currently Unemployed: No Education: Bachelor's Degree Difficulty w/ Childcare or Family Care: No Living arrangements: with family Occupation/Education: retired Gender identity (if verbalized by the patient): Male Agree to blood products: Yes Exam Narrative: GENERAL: Well-appearing, well-nourished, and in no acute distress. HEAD: Normocephalic, atraumatic. EYES: EOMI. CHEST: Clear to auscultation. No respiratory distress. No wheezes rales or rhonc hi HEART: Regular rate and rhythm. No murmur heard. Normal peripheral pulses. EXTREMITIES: Normal range of motion. No edema. SKIN: Warm, dry, no rash. NEURO: No focal deficits. Alert and oriented x3. PSYCH: Normal mood and affect Course Consultations Consultation #1: Spoke with Dr. Velasquez. No further recommendations at this time, patient just needs to follow up at his next visit in a couple of weeks Date: 07/20/24 Vital Signs Vital signs: Vital Signs Temperature 98.1 F 07/20/24 16:35 Pulse Rate 61 07/20/24 16:35 Respiratory Rate 15 07/20/24 16:35 Blood Pressure 158/69 H 07/20/24 16:35 Pulse Oximetry 99 07/20/24 16:35 Temperature 98.1 F 07/20/24 16:35 Pulse Rate 61 07/20/24 16:35 Respiratory Rate 15 07/20/24 16:35 Blood Pressure 158/69 H 07/20/24 16:35 Pulse Oximetry 99 07/20/24 16:35 MDM - Recheck/Abnormal Lab/Rx MDM Narrative Medical decision making narrative: Patient presents to the emergency department for abnormal outpatient blood work. This has been an ongoing issue for him for the last couple of years. He has finally been referred to Hematology. He had his 1st appointment with Hematology today. Reports he was called and told by somebody that he should go to the ER because his white blood cell count was elevated. It does appear stable from his to previous labs dating back to 2022. He has no symptoms currently. Spoke with Dr. Velasquez. No further recommendations at this time, patient just needs to follow up at his next visit in a couple of weeks Critical Care Time Critical Care Time Critical Care Time: No Discharge Plan Discharge Clinical Impression: Elevated WBC count Qualifiers: Leukocytosis type: unspecified Qualified Code(s): D72.829 - Elevated white blood cell count, unspecified Patient Disposition: Home, Self-Care Condition: Stable Instructions: Leukocytosis (ED) Additional Instructions: Return to the emergency department if you experience fever, chest pain, shortness of breath, abdominal pain with nausea and vomiting, pain or burning with urination, or any other symptoms that are concerning to you. Follow up with hematology for further evaluation/management Patient Language: Frisian Prescriptions: No Action zinc 50 mg tablet 50 mg PO DAILY diclofenac sodium 1 % gel 4 g topical QID Qty: 100 0RF Rx Instructions: apply to single knee, ankle, foot; for foot includes sole/toes/top of foot Xarelto 20 mg tablet See Rx Instructions .ROUTE .COMPLEX Qty: 90 2RF Dose Instruction: TAKE 1 TABLET BY MOUTH EVERY EVENING - MUST ADMINISTER WITH EVENING MEAL Rx Instructions: TAKE 1 TABLET BY MOUTH EVERY EVENING - MUST ADMINISTER WITH EVENING MEAL losartan 100 mg tablet 100 mg PO DAILY Qty: 90 1RF meloxicam 7.5 mg tablet 7.5 mg PO DAILY PRN (Reason: pain, severe) Qty: 90 0RF Follow-up/Referrals: Galen Velasquez MD [Physician] - Stef Dey MD [Primary Care Provider] -
--- OUTSIDE RECORDS SUMMARY | 2024-07-20 18:20 | XMS_ITS | Encounter Summary ---
Author Organization [facility] Address [address] [place] [address] Care Team Providers Care Printing Bindery Assistant Name Role Phone Unavailable Primary Care Provider Unavailabl e Reason for Visit * Reason Comments Establish Care Encounter Details Date Type Department Care Team (Late st Contact Info) Description 07/20/2024 10:30 AM CARTON MAKER Office Visit [facility] Oncology and Hematology - [place] [address] [place] [address] [facility] [address] [place] [address] Galen Velasquez MD [address] [facility] [address] [place] [address] Lymphocytosis (Primary Dx) Social History Tobacco Use Types Packs/Day Years Used Date Smoking Tobacco: Never Smokeless Tobacco: Never Alcohol Use Standard Drinks/Week Comments Yes 0 (1 standard drink = 0.6 oz pur e alcohol) Occasionally Sex and Gender Information Value Date Recorded Sex Assigned at Not on file Legal Sex Male 2:50 PM CARTON MAKER Gender Identity Not on file Sexual Orientation Not on file documented as of this encounter Last Filed Vital Signs Vital Sign Reading Time Taken Comments Blood Pressure 137/86 07/20/2024 10:38 AM CARTON MAKER Pulse 69 07/20/2024 10:38 AM CARTON MAKER Temperature 36.5 C (97.7 F) 07/20/2024 10:38 AM CARTON MAKER Respiratory Rate 15 07/20/2024 10:38 AM CARTON MAKER Oxygen Saturation 96% 07/20/2024 10:38 AM CARTON MAKER Inhaled Oxygen Concentration - - Weight 113.4 kg (250 lb) 07/20/2024 10:38 AM CARTON MAKER Height 188 cm (6' 2 ) 07/20/2024 10:38 AM CARTON MAKER Body Mass Index 32.1 07/20/2024 10:38 AM CARTON MAKER documented in this encounter Progress Notes * [...] dysuria; no frequency; no hesitancy; no hematuria MEDICAL TECHNOLOGIST GENERALIST: Musculosketetal: Patient did not mention bone pain; [...] of the total time spent counseling patient [id number]. CC:?Stef Frank MD ON MAKER documented in this encounter Plan of Treatment Upcoming Encounters Date Type Department Care Team (Late st Contact Info) Description 08/03/2024 11:30 AM CDT Office Visit [facility] Oncology and Hematology - [place] [address] [place] [address] Galen Velasquez MD [address] [facility] [address] [place] [address] Scheduled Orders Name Type Priority [...]
--- OUTSIDE RECORDS SUMMARY | 2024-07-20 18:20 | XMS_ITS | Continuity of Care Document ---
Author Organization [facility] Address [address] [place] [address] Phone Care Team Providers Care Trial Management Associate Name Role Phone Diamond PT, ELAINAT, Nathan Unavailable Unavailable Procedures Procedure Date Neuromuscular Re-Ed Neuromuscular Re-Ed Therapeutic Exercise Neuromuscular Re-Ed Therapeutic Exercise Neuromuscular Re-Ed Therapeutic Exercise Neuromuscular Re-Ed Therapeutic Exercise Doc neg elder mal no plan PT Re-evaluation Therapeutic Activities Neuromuscular Re-Ed Therapeutic Activities Neuromuscular Re-Ed Therapeutic Activities Neuromuscular Re-Ed Therapeutic Activities Neuromuscular Re-Ed Therapeutic Exercise Therapeutic Activities Neuromuscular Re-Ed Therapeutic Exercise Therapeutic Activities Neuromuscular Re-Ed Therapeutic Exercise Neuromuscular Re-Ed Therapeutic Exercise Doc neg elder mal no plan PT Evaluation Moderate Complexity Therapeutic Activities Neuromuscular Re-Ed Therapeutic Exercise Raman-05-2023 Doc neg elder mal no plan Doc neg elder mal no plan Doc neg elder mal no plan PT Evaluation Moderate Complexity Therapeutic Activities Therapeutic Activities Neuromuscular Re-Ed Progress Note Therapeutic Activities Neuromuscular Re-Ed Therapeutic Activities Neuromuscular Re-Ed Neuromuscular Re-Ed Therapeutic Activities Therapeutic Exercise Therapeutic Activities Neuromuscular Re-Ed Therapeutic Activities Neuromuscular Re-Ed Therapeutic Exercise Neuromuscular Re-Ed Progress Note Therapeutic Activities Therapeutic Exercise Therapeutic Activities Neuromuscular Re-Ed Therapeutic Exercise Therapeutic Exercise Neuromuscular Re-Ed Therapeutic Activities Neuromuscular Re-Ed Progress Note Therapeutic Activities Therapeutic Exercise Therapeutic Activities Neuromuscular Re-Ed Therapeutic Activities Neuromuscular Re-Ed Therapeutic Activities Therapeutic Exercise Neuromuscular Re-Ed Therapeutic Activities Therapeutic Exercise Neuromuscular Re-Ed Therapeutic Activities Neuromuscular Re-Ed Neuromuscular Re-Ed Therapeutic Activities PT Evaluation Moderate Complexity Therapeutic Exercise Neuromuscular Re-Ed Therapeutic Activities Manual Therapy Therapeutic Exercise Therapeutic Activities Neuromuscular Re-Ed Manual Therapy Therapeutic Exercise Therapeutic Activities Manual Therapy Neuromuscular Re-Ed Therapeutic Exercise Therapeutic Activities Therapeutic Exercise Manual Therapy Neuromuscular Re-Ed Manual Therapy Therapeutic Exercise Therapeutic Activities Neuromuscular Re-Ed Therapeutic Exercise Therapeutic Activities Manual Therapy Neuromuscular Re-Ed Therapeutic Activities Neuromuscular Re-Ed Therapeutic Exercise Manual Therapy Therapeutic Activities PT Evaluation Moderate Complexity Therapeutic Exercise Advance Directives Directive Yes / No Effective Date File Name No Information Encounters Encounter Description Practice Location Reason(s) For Visit Diagnoses Date Provider Providers Copied on Encounter [facility] [facility], [place], [place], [id number], [place] tel:[phone] [place] No Information 3 Diamond Evans. . Referring Provider: Kurtis Hayward, [address] [place] [address] [address], [place], [address]. [facility] [facility] [address], [place], [place], [address], [place] tel:[phone] [place] No Information 3 Diamond Evans. . Referring Provider: Kurtis Hayward [address] [place] [address] [address], [place], [address]. [facility], [place], [place], [id number], [place] tel:[phone] [place] No Information 3 Diamond Evans. . Referring Provider: Kurtis Hayward [address] [place] [address] [address], [place], [address]. [facility] [facility] [address], [place], [place], [id number], [place] tel:[phone] [place] No Information Mar-2 - 3 Klahn Nathan. . Referring Provider: Kurtis Hayward, [address] [place] [address] [address], [place], [address]. [facility], [address], [place], [place], [address], [place] tel:[phone] [place] No Information Mar-1 - 3 Klahn Nathan. . Referring Provider: Kurtis Hayward, [address] [place] [address] [address], [place], [address]. [facility], [address], [place], [place], [id number], [place] tel:[phone] [place] No Information Mar-0 3 Klahn Nathan. . Referring Provider: Kurtis Hayward, [address] [place] [address] [address], [place], [address]. [facility], [address] [facility] [address], [place], [id number], [place] tel:[phone] [place] No Information Mar-0 2- 3 Klahn Nathan. . Referring Provider: Kurtis Hayward, [address] [place] [address] [address], [place], [address]. [facility], [address] [facility], [place], [address], [place] tel:[phone] [place] No Information Feb-2 - 3 Klahn Nathan. . Referring Provider: Kurtis Hayward, [address] [place] [address] [address], [place], [address]. [facility], [address], [place], [place], [id number], [place] tel:[phone] [place] No Information Feb-1 3 Klahn Nathan. . Referring Provider: Kurtis Hayward, [address] [place] [address] [address], [place], [address]. [facility], [address], [place], [id number], [place] tel:[phone] [place] No Information Feb-0 - 3 Klahn Nathan. . Referring Provider: Kurtis Hayward, [address] [place] [address] [address], [place], [address]. [facility], [address] [facility] [address], [place], [address], [place] tel:[phone] [place] No Information 3 Klahn Nathan. . Referring Provider: Kurtis Hayward, [address] [place] [address] [address], [place], [address]. [facility], [address] [facility] [address], [place], [id number], [place] tel:[phone] [place] No Information 3 Klahn Nathan. . Referring Provider: Kurtis Hayward, [address] [place] [address] [address], [place], [address]. [facility], [address] [facility] [address], [place], [address], [place] tel:[phone] [place] No Information 3 Klahn Nathan. . Referring Provider: Kurtis Hayward, [address] [place] [address] [address], [place], [address]. [facility], [address] [facility] [address], [place], [address], [place] tel:[phone] [place] No Information 3 Klahn Nathan. . Referring Provider: Kurtis Hayward, [address] [place] [address] [address], [place], [address]. [facility] [address], [place], [place], [id number], [place] tel:[phone] [place] No Information 2 Klahn Nathan. . Referring Provider: Marc Fink, [address] [place] [address], [address]. tel:[phone] [facility] [address], [place], [address], [place] tel:[phone] [place] No Information 2 Lucyn Nathan. . Referring Provider: Marc Fink, [address] [place] [address], [address]. tel:[phone] [facility] [address] [address], [place], [address], [place] tel:[phone] [place] No Information 2 Klahn Nathan. . Referring Provider: Marc Fink, [address] [place] [address], [address]. tel:[phone] [place] [address] [address] [address], [place], [address], [place] tel:[phone] [place] No Information 2 Klahn Nathan. . Referring Provider: Marc Fink, [address] [place] [address], [address]. tel:[phone] [place] [address] [address] [address], [place], [address], [place] tel:[phone] [place] No Information 2 Klahn Nathan. . Referring Provider: Marc Fink, [address] [place] [address], [address]. tel:[phone] [place] [address] [address] [address], [place], [address], [place] tel:[phone] [place] No Information 2 Klahn Nathan. . Referring Provider: Marc Fink, [address] [place] [address], [address]. tel:[phone] [place] [id number] [address] [address], [place], [address], [place] tel:[phone] [place] No Information 2 Klahn Nathan. . Referring Provider: Marc Fink, [address] [place] [address], [address]. tel:[phone] [place] [id number] [facility] [address], [place], [address], [place] tel:[phone] [place] No Information 2 Klahn Nathan. . Referring Provider: Marc Fink, [address] [place] [address], [address]. tel:[phone] [facility] [address], [place], [address], [place] tel:[phone] [place] No Information 2 Klchanten Nathan. . Referring Provider: Marc Fink, [address] [place] [address], [address]. tel:[phone] [place] [id number], [place], [address], [place] tel:[phone] [place] No Information 2 Lucyn Nathan. . Referring Provider: Marc Fink, [address] [place] [address], [place], [address]. tel:[phone] [place] [address] [address] [address], [place], [address], [place] tel:[phone] [place] No Information 2 Lucyn Nathan. . Referring Provider: Marc Fink, [address] [place] [address], [place], [address]. tel:[phone] [facility] [address] [facility], [place], [address], [place] tel:[phone] [place] No Information 2 Diamond Evans. . Referring Provider: Marc Fink [address] [place] [address], [place], [address]. tel:[phone] [facility] [facility] [address], [place], [address], [place] tel:[phone] [place] No Information 2 Diamond Evans. . Referring Provider: Marc Fink, [address] [place] [address], [place], [address]. tel:[phone] [facility], [place], [address], [place] tel:[phone] [place] No Information Apr-1 1-202 2 Klahn Nathan. . Referring Provider: Marc Fink, [address] [place], [address]. tel:[phone] [place], [place] [id number] [facility], [place], [place], [address], [place] tel:[phone] [place] No Information Apr-0 7-202 2 Klahn Nathan. . Referring Provider: Marc Fink, [address] [place] [address], [address]. tel:[phone] [place] [address] [address] [facility] [facility], [place], [address], [place] tel:[phone] [place] No Information Apr-0 4-202 2 Klahn Nathan. . Referring Provider: Marc Fink, [address] [place] [address], [address]. tel:[phone] [place] [address] [address] [address], [place], [address], [place] tel:[phone] [place] No Information Mar-3 0-202 2 Klahn Nathan. . Referring Provider: Marc Fink, [address] [place] [address], [address]. tel:[phone] [place], [place] [id number] [facility], [place], [address], [place] tel:[phone] [place] No Information May-1 0-202 1 Garrels Yuridia. . [facility] [facility], [place], [address], [place] tel:[phone] [place] No Information May-0 3-202 1 Garrels Yuridia. . [facility] [facility], [place], [address], [place] tel:[phone] [place] No Information Apr-2 8- 1 Garrels Yuridia. . [facility] [facility], [place], [place], [address], [place] tel:[phone] [place] No Information 1 Garrels Yuridia. . [facility], [address], [place], [place], [address], tel:[phone] [place] No Information 1 Garrels Yuridia. . [facility], [place], [place], [address], tel:[phone] [place] No Information 1 Garrels Yuridia. . [facility], [place], [place], [address], tel:[phone] [place] No Information 1 Garrels Yuridia. . [facility] [facility], [place], [place], [address], tel:[phone] [place] No Information 1 Garrels Yuridia. . Family History Family Member Type Diagnosis Age At Onset No Information Payers Payer name Insurance type Covered green party ID Giana alcantar(s) [employer] Medicare Replacement CI [id number] Social History Type Description Quantity Date Captured Comments Sex Male Smoking Status No Information Chief Complaint And Reason For Visit No Information Reason For Referral Reason For Referral No Information History Of Present Illness Encounter Date Complaint History Of Prese nt Illness No Information Functional Status Date Functional Assessmen t No Information Instructions Date Instruction Additional Infor jackson Giving encouragement to exercise Related to Overweight Giving encouragement to exercise Related to Overweight Giving encouragement to exercise Related to Overweight Giving encouragement to exercise Related to Overweight Giving encouragement to exercise Related to Overweight Giving encouragement to exercise Related to Overweight Giving encouragement to exercise Related to Overweight Giving encouragement to exercise Related to Overweight Giving encouragement to exercise Related to Overweight Giving encouragement to exercise Related to Overweight Giving encouragement to exercise Related to Overweight Giving encouragement to exercise Related to Overweight Giving encouragement to exercise Related to Overweight Giving encouragement to exercise Related to Overweight Giving encouragement to exercise Related to Overweight Giving encouragement to exercise Related to Overweight Assessments Type Assessment Date No Information Patient Care Teams Name Effective Dates (start - stop) Status Members No Information
--- OUTSIDE RECORDS SUMMARY | 2024-07-20 18:21 | XMS_ITS | Clinical Summary ---
Author Organization [facility] Address [address] [facility] [place] [address] Care Team Providers Care Vehicle Controls Engineer Name Role Phone Unavailable Primary Care Provider [...] Department Care Team Description 07/20/2024 10:30 AM MICRO LAB ANALYST Office Visit [facility] Oncology and Hematology - [place] [address] [facility] [address] [place] [address] Galen Velasquez MD Lymphocytosis (Primary [...] on file Legal Sex Male 2:50 PM MICRO LAB ANALYST Gender Identity Not on file Sexual Orientation Not on file Last Filed Vital Signs Vital Sign Reading Time Taken Comments Blood Pressure 137/86 07/20/2024 10:38 AM MICRO LAB ANALYST Pulse 69 07/20/2024 10:38 AM MICRO LAB ANALYST Temperature 36.5 C (97.7 F) 07/20/2024 10:38 AM MICRO LAB ANALYST Respiratory Rate 15 07/20/2024 10:38 AM MICRO LAB ANALYST Oxygen Saturation 96% 07/20/2024 10:38 AM MICRO LAB ANALYST Inhaled Oxygen Concentration - - Weight 113.4 kg (250 lb) 07/20/2024 10:38 AM MICRO LAB ANALYST Height 188 cm (6' 2 ) 07/20/2024 10:38 AM MICRO LAB ANALYST Body Mass Index 32.1 07/20/2024 10:38 AM MICRO LAB ANALYST Plan of Treatment Upcoming Encounters Date Type Department Care Team (Late st Contact Info) Description 08/03/2024 11:30 AM CDT Office Visit [facility] Oncology and Hematology [facility] [address] [facility] [address] [place] [address] Galen Velasquez MD [address] [facility] [address] [place] [address] Health Maintenance Due Date Last Done Comments DTAP/TDAP/TD VACCINES (1 - Tdap) 1967 PNEUMOCOCCAL VACCINE 65+ YEARS (1 of 1 - PCV) 03/05/19 98 ZOSTER VACCINE (1 of 2) 1998 RSV VACCINE (60+ or ) (1 - 1-dose 75+ series) 2023 INFLUENZA VACCINE (#1) 2023 01/27/2016 [place] Prev entative Visit/Annual Wellness Visit 05/25/2024 Insurance [facility] [id number] [id number]
--- OUTSIDE RECORDS SUMMARY | 2024-07-20 18:21 | XMS_ITS | Patient Health Summary ---
Author Organization [facility] Address [address] [place] [address] Care Team Providers Care Aviation Program Manager Name Role Phone Abdi Patel MD Primary Care Provider Note from [facility],non-owned Affiliates and Associated Physician Practices is amultiple site organization consisting of ambulatory clinics and hospital sitesin [place], [place], [place] and [place]. This disclosure is being madepursuant to the Care Everywhere program and may not contain all information available regarding this patient. Last updated 18.[facility] Immunizations * HEP A VACCINE, ADULT(Given 01/27/2016) [...] Sexual Orientation Not on file Care Teams Aviation Program Manager Relationship Specialty Start Date End Date Abdi Patel MD [address] [place] [address] PCP - General Internal Medicine 01/27/16
--- OUTSIDE RECORDS SUMMARY | 2024-07-20 18:21 | XMS_ITS | Referral Summary ---
Author Organization [facility] Address [address] [place] [address] Care Team Providers Care Project Builder Name Role Phone Abdi Patel MD Primary Care Provider [phone] Source Comments [facility],non-owned Affiliates and Associated Physician Practices is amultiple site organization consisting of ambulatory clinics and hospital sitesin [place], [place], [place] and [place]. This disclosure is being madepursuant to the Care Everywhere program and may not contain all information available regarding this patient. Last updated 18.[facility] Immunizations Name Administration Dates Next Due HEP [...] of Treatment Not on file Care Teams Project Builder Relationship Specialty Start Date End Date Abdi Patel MD [address] [place] [address] PCP - General Internal Medicine 01/27/16
--- OUTSIDE RECORDS SUMMARY | 2024-07-20 18:21 | XMS_ITS | Clinical Summary ---
Author Organization [facility] Address [address] [facility] [place] [address] Care Team Providers Care Developmental Therapist Name Role Phone Abdi Patel MD Primary Care Provider [phone] Source Comments [facility],non-owned Affiliates and Associated Physician Practices is amultiple site organization consisting of ambulatory clinics and hospital sitesin [place], [place], [place] and [place]. This disclosure is being madepursuant to the Care Everywhere program and may not contain all information available regarding this patient. Last updated 18.[facility] Immunizations Name Administration Dates Next Due [...] age to complete this topic Care Teams Developmental Therapist Relationship Specialty Start Date End Date Abdi Patel MD [address] [place] [address] PCP - General Internal Medicine 01/27/16
--- OUTSIDE RECORDS SUMMARY | 2024-07-20 18:33 | XMS_ITS | Continuity of Care Document ---
Author Organization [facility] Address [address] [facility] [address] [place] [address] Phone Care Team Providers Care Sports Coordinator Name Role Phone Diamond PT, ELAINAT, Nathan [...] Diagnoses Date Provider Providers Copied on Encounter [facility] [facility] [address], [place], [place], [id number], [place] tel:[phone] [place] No Information 3 Diamond Evans. . Referring Provider: Kurtis Hayward, [address] [place] [address] [address], [place], [address]. [facility], [place], [place], [id number], [place] tel:[phone] [place] No Information 3 Diamond Evans. . Referring Provider: Kurtis Hayward [address] [place] [address] [address], [place], [address]. [facility], [place], [address], [place] tel:[phone] [place] No Information 3 Diamond Evans. . Referring Provider: Kurtis Hayward [address] [place] [address] [address], [place], [address]. [facility], [place], [id number], [place] tel:[phone] [place] No Information Mar-2 - 3 Klahn Nathan. . Referring Provider: Kurtis Hayward, [address] [place] [address] [address], [place], [address]. [facility], [address], [place], [id number], [place] tel:[phone] [place] No Information Mar-1 - 3 Klahn Nathan. . Referring Provider: Kurtis Hayward, [address] [place] [address] [address], [place], [address]. [facility], [address], [place], [address], [place] tel:[phone] [place] No Information Mar-0 3 Klahn Nathan. . Referring Provider: Kurtis Hayward, [address] [place] [address] [address], [place], [address]. [facility], [address], [place], [id number], [place] tel:[phone] [place] No Information Mar-0 2- 3 Klahn Nathan. . Referring Provider: Kurtis Hayward, [address] [place] [address] [address], [place], [address]. [facility], [address], [place], [address], [place] tel:[phone] [place] No Information Feb-2 - 3 Klahn Nathan. . Referring Provider: Kurtis Hayward, [address] [place] [address] [address], [place], [address]. [facility], [address], [place], [address], [place] tel:[phone] [place] No Information Feb-1 3 Klahn Nathan. . Referring Provider: Kurtis Hayward, [address] [place] [address] [address], [place], [address]. [facility], [address], [place], [address], [place] tel:[phone] [place] No Information Feb-0 - 3 Klahn Nathan. . Referring Provider: Kurtis Hayward, [address] [place] [address] [address], [place], [address]. [facility], [address], [place], [address], [place] tel:[phone] [place] No Information 3 Klahn Nathan. . Referring Provider: Kurtis Hayward, [address] [place] [address] [address], [place], [address]. [facility], [address], [place], [address], [place] tel:[phone] [place] No Information 3 Klahn Nathan. . Referring Provider: Kurtis Hayward, [address] [place] [address] [address], [place], [address]. [facility], [address], [place], [address], [place] tel:[phone] [place] No Information 3 Klahn Nathan. . Referring Provider: Kurtis Hayward, [address] [place] [address] [address], [place], [address]. [facility], [address], [place], [address], [place] tel:[phone] [place] No Information 3 Klahn Nathan. . Referring Provider: Kurtis Hayward, [address] [place] [address] [address], [place], [address]. [facility] [address], [place], [address], [place] tel:[phone] [place] No Information 2 Klahn Nathan. . Referring Provider: Marc Fink, [address] [place] [address], [address]. tel:[phone] [facility] [address], [place], [address], [place] tel:[phone] [place] No Information 2 Lucyn Nathan. . Referring Provider: Marc Fink, [address] [place] [address], [address]. tel:[phone] [facility] [address] [address], [place], [address], [place] tel:[phone] [place] No Information 2 Klahn Nathan. . Referring Provider: Marc Fink, [address] [place] [address], [address]. tel:[phone] [place] [address] [address] [address], [place], [address], [place] tel:[phone] [place] No Information 2 Klahn Nathan. . Referring Provider: aMrc Fink, [address] [place] [address], [address]. tel:[phone] [place] [address] [address] [address], [place], [address], [place] tel:[phone] [place] No Information 2 Klahn Nathan. . Referring Provider: Marc Fink, [address] [place] [address], [address]. tel:[phone] [place] [address] [address] [address], [place], [address], [place] tel:[phone] [place] No Information 2 Klahn Nathan. . Referring Provider: Marc Fink, [address] [place] [address], [address]. tel:[phone] [place] [id number] [address], [place], [address], [place] tel:[phone] [place] No Information 2 Klahn Nathan. . Referring Provider: Marc Fink, [address] [place] [address], [address]. tel:[phone] [place] [id number] [facility] [address], [place], [address], [place] tel:[phone] [place] No Information 2 Klahn Nathan. . Referring Provider: Marc Fink, [address] [place] [address], [address]. tel:[phone] [facility] [address], [place], [address], [place] tel:[phone] [place] No Information 2 Klchanten Nathan. . Referring Provider: Marc Fink, [address] [place] [address], [address]. tel:[phone] [place] [id number], [place], [address], [place] tel:[phone] [place] No Information 2 Lucyn Nathan. . Referring Provider: Marc Fink, [address] [place] [address], [place], [address]. tel:[phone] [place] [address] [address] [address], [place], [address], [place] tel:[phone] [place] No Information 2 Lucyn Nathan. . Referring Provider: Marc Fink, [address] [place] [address], [place], [address]. tel:[phone] [facility] [address] [facility], [place], [address], [place] tel:[phone] [place] No Information 2 Diamond Evans. . Referring Provider: Marc Fink [address] [place] [address], [place], [address]. tel:[phone] [facility], [place], [address], [place] tel:[phone] [place] No Information 2 Diamond Evans. . Referring Provider: Marc Fink, [address] [place] [address], [place], [address]. tel:[phone] [facility], [place], [address], [place] tel:[phone] [place] No Information Apr-1 1-202 2 Klahn Nathan. . Referring Provider: Marc Fink, [address] [place], [address]. tel:[phone] [place] [id number] [facility], [place], [address], [place] tel:[phone] [place] No Information Apr-0 7-202 2 Klahn Nathan. . Referring Provider: Marc Fink, [address] [place] [address], [address]. tel:[phone] [place] [address] [facility], [place], [address], [place] tel:[phone] [place] No Information Apr-0 4-202 2 Klahn Nathan. . Referring Provider: Marc Fink, [address] [place] [address], [address]. tel:[phone] [place] [address] [address] [address], [place], [address], [place] tel:[phone] [place] No Information Mar-3 0-202 2 Klahn Nathan. . Referring Provider: Marc Fink, [address] [place] [address], [address]. tel:[phone] [place] [id number] [facility], [place], [address], [place] tel:[phone] [place] No Information May-1 0-202 1 Garrels Yuridia. . [facility] [facility] [facility] [address], [place], [address], [place] tel:[phone] [place] No Information May-0 3-202 1 Garrels Yuridia. . [facility], [place], [address], [place] tel:[phone] [place] No Information Apr-2 8- 1 Garrels Yuridia. . [facility], [place], [address], [place] tel:[phone] [place] No Information 1 Garrels Yuridia. . [facility], [address], [place], [place], [address], tel:[phone] [place] No Information 1 Garrels Yuridia. . [facility], [place], [address], tel:[phone] [place] No Information 1 Garrels Yuridia. . [facility], [place], [place], [address], tel:[phone] [place] No Information 1 Garrels Yuridia. . [facility], [place], [place], [address], tel:[phone] [place] No Information 1 Garrels Yuridia. . Family History Family Member Type Diagnosis Age At Onset No Information Payers Payer name Insurance type Covered libertarian ID Giana alcantar(s) [employer] Medicare Replacement CI [id number] Social History Type Description Quantity Date Captured [...]
== END 2024-07-20 17:36 | disposition home or self-care (01) ==
LOC: ANHED 16:56
PROVIDERS: Emergency Provider Physician Assistant; PCP Emergency Medicine
DX: D72.829 Elevated white blood cell count, unspecified (principal); E78.2 Mixed hyperlipidemia; Z79.01 Long term (current) use of anticoagulants; Z79.899 Other long term (current) drug therapy
CPT/HCPCS: 99281

== ENCOUNTER 2024-07-29 09:46 | Outpatient (CLI) | payer MEDICARE, SELFPAY ==
--- NOTE | ~2024-07-29 | MR_ITS ---
EXAMINATION: MR shoulder LT wo con DATE: 07/29/2024 10:39 INDICATION: Left shoulder pain TECHNIQUE: Magnetic resonance imaging (MRI) of the left shoulder was performed without intravenous co ntrast. Sequences included axial PD-weighted FS FSE, coronal oblique PD-weighted FS FSE, coronal obli que T2-weighted FS FSE, sagittal PD-weighted FS FSE, and sagittal T1-weighted SE. COMPARISON: None. FINDINGS: Coracoacromial arch: The acromion undersurface is curved in morphology (type II). The coracoacromial ligament is normal. S evere acromioclavicular osteoarthritis. Rotator cuff: Tear extending along the superior middle facet footplates of the supraspinatus and infraspinatus tend ons which includes both full-thickness and near full-thickness articular sided components with minima l amount of residual intact bursal sided ligament fibers. There is up to 3.5 cm medial retraction of the torn portion of the tendons. There is severe tendinopathy extending 2-3 cm medially from the tear margin. The teres minor tendon is normal. Mild to moderate subscapularis tendinopathy without discre te tear. There is prominent feathery muscular edema in the supraspinatus muscle belly. No rotator cuf f muscle fatty atrophy. Biceps tendon, glenoid labrum and glenohumeral cartilage: Long head of the biceps tendon is normal. There is a small linear tear at the base of the 5:30-6:30 p osition of the inferior glenoid labrum. There is some degenerative fraying along the free edge of the posterior to posterior superior glenoid labrum. Glenohumeral cartilage is normal. Fluid: Moderate-sized glenohumeral joint effusion with fluid extending through the full-thickness rotator cu ff tear with small amount of fluid in the subacromial/subdeltoid bursae. No loose osteochondral moni s. Bones: There is mild cephalad subluxation of the humeral head with respect to the glenoid likely resulting f rom a rotator cuff tear. No fracture or pathologic marrow replacing process. Degenerative subarticula r cystlike changes at the acromioclavicular joint. Additional cystic changes along the middle facet o f the greater tuberosity likely related to chronic rotator cuff disease. IMPRESSION: 1. Full-thickness and near full-thickness bursal sided tear extending across the superior middle face t footplates of the supraspinatus and infraspinatus tendons which likely relatively recent given the muscular edema in the infraspinatus muscle belly and absence of significant fatty atrophy. 2. Tear at the inferior glenoid labrum with degenerative fraying along the free edge of the posterior to posterior superior labrum. 3. Severe acromioclavicular osteoarthritis. 4. Likely reactive moderate sized glenohumeral joint effusion. Reviewed, dictated and finalized at location B. [facility] IMPRESSION: 1. Full-thickness and near full-thickness bursal sided tear extending across th e superior middle facet footplates of the supraspinatus and infraspinatus tendo ns which likely relatively recent given the muscular edema in the infraspinatus muscle belly and absence of significant fatty atrophy. 2. Tear at the inferior glenoid labrum with degenerative fraying along the free edge of the posterior to posterior superior labrum. 3. Severe acromioclavicular osteoarthritis. 4. Likely reactive moderate sized glenohumeral joint effusion.
== END 2024-07-29 09:47 | disposition home or self-care (01) ==
LOC: GOSHIMG 09:46
PROVIDERS: PCP Emergency Medicine; Visit Provider Emergency Medicine
DX: S46.812A Strain of other muscles, fascia and tendons at shoulder and upper arm level, left arm, initial encounter (principal); S43.432A Superior glenoid labrum lesion of left shoulder, initial encounter; X58.XXXA Exposure to other specified factors, initial encounter; M19.012 Primary osteoarthritis, left shoulder
CPT/HCPCS: 73221

== ENCOUNTER 2024-10-14 11:50 | Outpatient (CLI) | payer MEDICARE, SELFPAY ==
--- OUTSIDE RECORDS SUMMARY | 2024-10-14 11:54 | XMS_ITS | Encounter Summary ---
Author Organization [facility] Address [address] [place] [address] Care Team Providers Care Waiter And Cashier Name Role Phone Unavailable Primary Care Provider Unavailabl e Encounter Details Date Type Department Care Team (Late st Contact Info) Description 10/11/2024 External Device Data [facility] ABSTRACTION Provider, Abstract NO ADDRESS ON FILE Social History Tobacco Use Types Packs/Day Years Used Date Smoking Tobacco: Never Smokeless Tobacco: Never Alcohol Use Standard Drinks/Week Comments Yes 0 (1 standard drink = 0.6 oz pur e alcohol) Occasionally Sex and Gender Information Value Date Recorded Sex Assigned at Not on file Legal Sex Male 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
--- OUTSIDE RECORDS SUMMARY | 2024-10-14 11:54 | XMS_ITS | Clinical Summary ---
Author Organization [facility] [place] Address [address] [place] [address] Care Team Providers Care Sludge Control Attendant Name Role Phone Unavailable Primary Care Provider [...] Encounters Date Type Department Care Team Description 10/11/2024 External Device Data [facility] ABSTRACTION Provider, Abstract 09/06/2024 External Device Data [facility] ABSTRACTION Provider, Abstract 08/10/2024 External Device Data [facility] ABSTRACTION Provider, Abstract 08/10/2024 External Device Data [facility] ABSTRACTION Provider, Abstract 08/03/2024 11:30 AM CDT Office Visit [facility] Oncology and Hematology - [place] [address] [place] [address] Galen Velasquez MD Lymphocytosis (Primary Dx) 08/01/2024 External Device Data [facility] ABSTRACTION Provider, Abstract 07/30/2024 External Device Data [facility] ABSTRACTION Provider, Abstract 07/29/2024 External Device Data [facility] ABSTRACTION Provider, Abstract 07/28/2024 Orders Only [facility] Oncology and Hematology [place] [address] [place] [address] Galen Velasquez MD 07/27/2024 External Device Data ST[facility] ABSTRACTION Provider, Abstract 07/27/2024 External Device Data [facility] ABSTRACTION Provider, Abstract 07/26/2024 External Device Data [facility] ABSTRACTION Provider, Abstract 07/25/2024 Orders Only [facility] [address] [place] [address] Galen Velasquez MD 07/21/2024 Abstract [facility] Hematology [place] [address] [place] [address] Galen Velasquez MD 07/20/2024 10:30 AM WOOD CARVING MACHINE OPERATOR Office Visit [facility] [address] [place] [address] Galen Velasquez MD Lymphocytosis (Primary Dx) from [...] Date Smoking Tobacco: Never Smokeless Tobacco: Never Tobacco Cessation:Counseling Given: Not Answered Alcohol Use Standard Drinks/Week Comments Yes 0 (1 standard drink = 0.6 oz pur e alcohol) Occasionally Sex and Gender Information Value Date Recorded Sex Assigned at Not on file Legal Sex 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 Gender Identity Not on file Sexual Orientation Not on file Last Filed Vital Signs Vital Sign Reading Time Taken Comments Blood Pressure 142/85 08/03/2024 11:22 AM CDT Pulse 72 08/03/2024 11:19 AM CDT Temperature 35.7 C (96.3 F) 08/03/2024 11:19 AM CDT Respiratory Rate 16 08/03/2024 11:19 AM CDT Oxygen Saturation 96% 08/03/2024 11:19 AM CDT Inhaled Oxygen Concentration - - Weight 113.9 kg (251 lb) 08/03/2024 11:19 AM CDT Height 188 cm (6' 2 ) 07/20/2024 10:38 AM WOOD CARVING MACHINE OPERATOR Body Mass Index 32.23 07/20/2024 10:38 AM WOOD CARVING MACHINE OPERATOR Plan of Treatment Upcoming Encounters Date Type Department Care Team (Late st Contact Info) Description 02/13/2025 10:15 AM CDT Office Visit [facility] Oncology and Hematology - [place] [address] [facility] [address] [place] [address] Galen Velasquez MD [address] [facility] [address] [place] [address] Health Maintenance Due Date Last Done Comments DTAP/TDAP/TD VACCINES (1 - Tdap) 1969 PNEUMOCOCCAL VACCINE 50+ YEARS (1 of 1 - PCV) 03/05/19 98 ZOSTER VACCINE (1 of 2) 1998 RSV VACCINE (60+ or ) (1 - 1-dose 75+ series) 2023 INFLUENZA VACCINE (#1) 2023 01/27/2016 Procedures Procedure Name Priority Date/Time Associated Diagnosis Comments COMPREHENSIVE METABOLIC PANEL Routine 07/20/2024 3:24 PM WOOD CARVING MACHINE OPERATOR FLOW CYTOMETRY REPORT Routine 07/20/2024 11:03 AM WOOD CARVING MACHINE OPERATOR from Last 3 Months Results * COMPREHENSIVE METABOLIC PANEL (07/20/2024 3:24 PM WOOD CARVING MACHINE OPERATOR) Blood us Galen Velasquez MD CHEMISTRY ORDERABLES Final Resu lt * FLOW CYTOMETRY REPORT (07/20/2024 11:03 AM WOOD CARVING MACHINE OPERATOR) us Galen Velasquez MD PATHOLOGY/CYTOLOGY ORDERABLES F inal Result from Last 3 Months Insurance [facility] [id number] [address] [id number]
--- OUTSIDE RECORDS SUMMARY | 2024-10-14 11:54 | XMS_ITS | Clinical Summary ---
Author Organization [facility] Address [address] [facility] [place] [address] Care Team Providers Care Gis Coordinator Name Role Phone Abdi Patel MD Primary Care Provider Source Comments [facility],non-owned Affiliates and Associated Physician Practices is amultiple site organization consisting of ambulatory clinics and hospital sitesin [place], [place], [place] and [place]. This disclosure is being madepursuant to the Care Everywhere program and may not contain all information available regarding this patient. Last updated 18.[facility] Immunizations Immunization Administration Dates Next Due HEP A VACCINE, [...] at Not on file Legal Sex Male 3:43 PM CDT Gender Identity Not on file Sexual Orientation Not on file Plan of Treatment Health Maintenance Due Date Last Done Comments COVID-19 VACCINE (#1) 1955 HEPATITIS C SCREENING 03/01/1966 DTAP/TDAP/TD VACCINES (1 - Tdap) 1967 PNEUMOCOCCAL VACCINE 50+ (1 of 2 - PCV) 1967 ZOSTER VACCINE (1 of 2) 1967 HEPATITIS B VACCINE (3 of 3 - Risk 3-dose series) 07/26/2016 03/03/2016, 01/27/2016 Respiratory Syncytial Virus (RSV) Vaccine Pt: or over 60 yrs (1 - 1-dose 75+ series) 2023 DEPRESSION SCREENING 05/25/2024 MEDICARE AWV CALENDAR YEAR 2024 INFLUENZA VACCINE (Season Ended) 2025 01/27/2016 HIB VACCINE Aged Out No longer eligi ble based on patient's age to complete this topic HPV VACCINE Aged Out No longer eligi ble based on patient's age to complete this topic MENINGOCOCCAL (Group B) VACCINE SHARED DECISION-MAKING Aged Out No longer eligible based on patient's age to complete this topic MENINGOCOCCAL GROUPS A/C/Y/W VACCINE Aged Out No longer eligible b ased on patient's age to complete this [place] [address] [facility] MANAGED MEDICARE ADV [employer] MEDICARE ADV SELF PAY NO INSURANCE Member Subscriber Plan / Payer (Ef fective for All Dates) Name:Abdi Mace Member ID:Not on file Relation to Subscriber:Not on file Name:ABDI MACE Subscriber ID:Not on file (Home) Address: [address] [place] [address] [place] [address] Payer ID:Not on file Group ID:Not on file Type:Self Pay Address: [facility] Care Teams Gis Coordinator Relationship Specialty Start Date End Date Abdi Patel MD [address] [place] [id number] PCP - General Internal Medicine 01/27/16
[2024-10-14 12:28] LABS: Alanine Aminotransferase 27 U/L (6-50); Albumin Level 4.3 g/dL (3.5-5.1); Alkaline Phosphatase 51 U/L (38-126); Anion Gap 6 mmol/L (4-12); Aspartate Amino Transferase 42 U/L (17-59); Bilirubin,Total 1.7 mg/dL (0.2-1.3); Blood Urea Nitrogen 25 mg/dL (9-20); Calcium 9.1 mg/dL (8.4-10.2); Carbon Dioxide 27 mmol/L (22-30); Chloride 105 mmol/L (98-107); Cholesterol 241 mg/dL (0-200); Estimated Glomerular Filt Rate 58; Glucose 108 mg/dL (65-110); HDL Direct 47 mg/dL; Potassium 4.5 mmol/L (3.4-5.0); Sodium 138 mmol/L (137-145); Triglycerides 214 mg/dL (<150)
[2024-10-14 12:41] LABS: LDL Cholesterol Direct 121 mg/dL
[2024-10-14 12:59] LABS: Prostate Specific Antigen 5.8 ng/mL (< OR = 4.0)
[2024-10-14 13:20] LABS: Vitamin D 25 Hydroxy 30.7 ng/mL
== END 2024-10-14 11:51 | disposition home or self-care (01) ==
LOC: ANHLAB 11:51
PROVIDERS: PCP Emergency Medicine; Visit Provider Emergency Medicine
DX: E78.5 Hyperlipidemia, unspecified (principal); E55.9 Vitamin D deficiency, unspecified; Z12.5 Encounter for screening for malignant neoplasm of prostate
CPT/HCPCS: 36415; 80053; 80061; 82306; 84153; G0103

== ENCOUNTER 2025-02-13 10:19 | Outpatient (CLI) | payer MEDICARE, SELFPAY ==
--- OUTSIDE RECORDS SUMMARY | 2025-02-13 10:15 | XMS_ITS | Encounter Summary ---
Author Organization [facility] [employer] [facility] Address [address] [place] [address] Care Team Providers Care Cushion Former Name Role Phone Unavailable Primary Care Provider Unavailabl e Reason for Visit * Reason Comments Follow Up Encounter Details Date Type Department Care Team (Late st Contact Info) Description 02/13/2025 10:15 AM CDT Office Visit [facility] Oncology and Hematology - [place] [address] [facility] [address] [place] [address] Galen Velasquez MD [address] [facility] [address] [place] [address] Lymphocytosis (Primary Dx) Social History Tobacco Use Types Packs/Day Years Used Date Smoking Tobacco: Never Smokeless Tobacco: Never Alcohol Use Standard Drinks/Week Comments Yes 0 (1 standard drink = 0.6 oz pur e alcohol) Occasionally Sex and Gender Information Value Date Recorded Sex Assigned at Not on file Legal Sex Male 2:50 PM APRN Gender Identity Not on file Sexual Orientation Not on file documented as of this encounter Last Filed Vital Signs Vital Sign Reading Time Taken Comments Blood Pressure 132/85 02/13/2025 10:34 AM CDT Pulse 56 02/13/2025 10:31 AM CDT Temperature 36.6 C (97.9 F) 02/13/2025 10:31 AM CDT Respiratory Rate 16 02/13/2025 10:3 1 AM CDT Oxygen Saturation 97% 02/13/2025 10: 31 AM CDT Inhaled Oxygen Concentration - - Weight 117.6 kg (259 lb 3.2 oz) 025 10:31 AM CDT Height - - Body Mass Index 33.28 07/20/2024 10:38 AM APRN documented in this encounter Progress Notes * Galen Velasquez MD - 02/13/2025 11:11 AM CDT HEMATOLOGY / ONCOLOGY PROGRESS NOTE Patient Identification: Name: Abdi Borjas Age: 74 y.o. Sex: male : 1950 DIAGNOSIS Chronic lymphocytic leukemia status post flow cytometric analysis done on July 20, 2024. CURRENT TREATMENT Surveillance TREATMENT HISTORY SUBJECTIVE Patient came to the office for follow-up visit. He denies any night sweats fevers and chills. He has gained 8 pound weight. Denies any new lumps bumps and lymphadenopathy. No other new complaints. Review of system Constitutional: Patient did not mention fevers, sweats, 8 pound weight gain without any tiredness and fatigue HEENT: Patient did not mention sinus congestion, hearing or vision problems Respiratory: Patient did not mention cough, dyspnea, wheeze Cardiovascular: Patient did not mention chest pain, exertional chest pressure/discomfort, nausea, syncope, shortness of breath GI: Patient did not mention constipation, diarrhea, dsyphagia, reflux symptoms, vomiting, melena : Patient did not mention dysuria, frequency, incontinence, urgency Integumentary system: no lymphadenopathy, sweats, flushing Musculoskeletal: Patient not mention: myalgia, arthralgia Neurological: Patient did not mention blurry or disturbed vision, numbness/weakness, dizziness Skin: No lumps, bumps or rashes. 12 point review of system was reviewed Objective: Vital signs in last 24 hours: As per nursing note Exam: General appearance: alert, cooperative, no distress, appears stated age Head: normocephalic, without obvious abnormality, atraumatic Eyes: conjunctivae/corneas clear, EOM's intact Ears: normal external ear canals AU Nose: Nares normal. Septum midline. Mucosa normal. No drainage or sinus tenderness Throat: Lips, mucosa, and tongue normal. Teeth and gums normal Neck: supple, symmetrical, trachea midline. Lungs: clear to auscultation bilaterally Heart: regular rate and rhythm, S1, S2 normal, no murmur, click, rub or gallop Abdomen: soft, non-tender. Bowel sounds normal. No masses, No organomegaly Extremities: extremities normal, atraumatic, no cyanosis or edema Skin: Skin color, texture, turgor normal. No rashes or lesions Lymph nodes: No lymphadenopathy Neuro: No obvious focal deficit Exam as above PATH LABS Labs from July 20 showed creatinine 1.1 LDH 188 WBC 21.1 hemoglobin 15.7 platelet 221,000 lymphocyte 65% neutrophils 29% Labs from February 13 showed creatinine 1.2 WBC 22 hemoglobin 15.1 platelet 170,000 neutrophils 27% lymphocyte 68% Assessment: Plan: There are no active problems to display for this patient. Chronic lymphocytic leukemia status post flow cytometric analysis done on July 20, 2024. Patient is clinically asymptomatic other than occasional night sweats. On my examination there is no evidence of lymphadenopathy. Labs showed stable elevated WBC count. There is no indication to treat leukemia. Will continue to observe and see him back in 6 months. Atrial fibrillation. Stable on Xarelto. Hypertension. Stable on losartan. I have recommended regular exercise and weight loss. Follow-up in 6 months 02/13/2025 Galen Velasquez MD documented in this encounter Plan of Treatment Upcoming Encounters Date Type Department Care Team (Late st Contact Info) Description 08/11/2025 11:45 AM CDT Office Visit [facility] Oncology and Hematology - [place] [address] [facility] [address] [place] [address] Galen Velasquez MD [address] [facility] [address] [place] [address] Scheduled Orders Name Type Priority Associated Diagnoses Orde r Schedule CBC WITH DIFFERENTIAL Lab Stat Lymphocytosis Expected: 08/13/2025, Expires: 02/13/2026 COMPREHENSIVE METABOLIC PANEL Lab Stat Lymphocytosis Expected: 08/13/2025, Expires: 02/13/2026 LACTATE DEHYDROGENASE Lab Routine Lymphocytosis Expected: 08/13/2025, Expires: 02/13/2026 documented as of this encounter Visit Diagnoses Diagnosis Lymphocytosis- Primary Lymphocytosis (symptomatic) documented in this encounter
[2025-02-13 10:32] LABS: Hematocrit 45.3 % (42.0-52.0); Hemoglobin 15.1 g/dL (14.0-18.0); Immature Granulocyte Percent A 0.3 % (0-0.5); Lymphocytes Absolute Auto 15.06 K/mm3 (0.9-3.2); Mean Corpuscular HGB Conc 33.3 g/dl (32-36); Mean Corpuscular Hemoglobin 30.6 pg (26-34); Mean Corpuscular Volume 91.7 fl (80-100); Nucleated Red Blood Cells Absolute Auto 0.000 K/mm3 (0.0-0.012); Nucleated Red Blood Cells Perc 0.0 % (0.0-0.2); Platelet Count Result 170 k/mm3 (150-375); Red Blood Count 4.94 M/mm3 (4.6-6.20); White Blood Count 22.0 K/mm3 (4.5-10.0)
[2025-02-13 10:35] LABS: Blood Urea Nitrogen 28 mg/dL (8-26); Carbon Dioxide 26 mmol/L (22-30); Chloride 104 mmol/L (98-109); Estimated Glomerular Filt Rate 59; Glucose 97 mg/dL (70-105); Ionized Calcium (POC) 1.23 mmol/L (1.11-1.31); Potassium 4.5 mmol/L (3.5-4.9); Sodium 139 mmol/L (138-146)
--- OUTSIDE RECORDS SUMMARY | 2025-02-13 11:29 | XMS_ITS | Clinical Summary ---
Author Organization [facility] Address [address] [place] [address] Care Team Providers Care Tacking Stitch Remover Name Role Phone Stef Dey MD Primary Care Provider [phone] Allergies No known active allergies Medications atorvastatin (LIPITOR) 40 MG tablet Take 1 tablet (40 mg total) by mouth daily. 4 Active diclofenac sodium (VOLTAREN) 1 % gel PLEASE SEE ATTACHED FOR DETAILED DIRECTIONS 4 Active losartan (COZAAR) 100 MG tablet Take 1 tablet (100 mg total) by mouth daily. Active meloxicam (MOBIC) 7.5 MG tablet TAKE 1 TABLET BY MOUTH DAILY NEEDED FOR PAIN, SEVERE 4 Active XARELTO 20 MG Tab tablet Take 1 tablet (20 mg total) by mouth daily. 4 Active tiZANidine HCl 2 MG Cap TAKE 1 CAPSULE BY MOUTH THREE TIMES A DAY NEEDED FOR MUSCLE SPASM 4 Active vitamin C (ASCORBIC ACID) 500 MG tablet Take by mouth daily. Active calcium carbonate (OS-MARIA T) 600 MG tablet Take by mouth daily. Active Multiple Vitamin (MULTIVITAMIN ADULT OR) Take by mouth daily. Active fish oil (OMEGA-3 FATTY ACID) 1000 MG Cap capsule Take by mouth daily. Active Zinc Gluconate 50 MG Cap Take by mouth daily. Active Active Problems Problem Noted Date Diagnosed Date Atrial fibrillation (CMS/HCC HHS/HCC) 09/08/2024 Hypertension 09/08/2024 Complete rotator cuff tear of left shoulder 08/23 Assessment & Plan (09/07/2024 7:11 PM CDT): Recommendation at this time we went over the risks the benefits as well as the alternatives. We reviewed the risks, benefits, as well as the alternatives. He is currently on Xarelto, so we would like to avoid non-steroidal anti- inflammatories. Patient is seeking a second opinion; in fact, I am the second opinion -- he has not yet seen his first opinion provider, Dr. Millard located in [place], [place]. He plans to speak with Dr. Millard to help him decide, as he is currently not inclined to pursue surgical intervention. He is 74 years old. I would consider a trial of steroid treatment. He may continue with topical anti-inflammatories. I would also recommend physical therapy. He will attend his first opinion appointment on and will contact us if he wishes to proceed with further treatment. Family History Medical History Relation Comments None Mother Relation Status Comments Mother Alive Social History Tobacco Use Types Packs/Day Years Used Date Smoking Tobacco: Never Smokeless Tobacco: Never Tobacco Cessation:Counseling Given: No Alcohol Use Standard Drinks/Week Comments Yes 2 (1 standard drink = 0.6 oz pur e alcohol) PHQ-2 Answer Date Recorded Patient Health Questionnaire-2 Score 0 09/05/2024 Sex and Gender Information Value Date Recorded Sex Assigned at Male 09/05/2024 11:48 AM CDT Legal Sex Male 8:51 AM CDT Gender Identity Male 09/05/2024 11:48 AM CDT Sexual Orientation Straight 09/05/2024 11 :48 AM CDT Last Filed Vital Signs Vital Sign Reading Time Taken Comments Blood Pressure 137/71 09/05/2024 11:49 AM CDT Pulse 61 09/05/2024 11:49 AM CDT Temperature 36.6 C (97.8 F) 09/05/2024 11:49 AM CDT Respiratory Rate - - Oxygen Saturation 98% 09/05/2024 11:49 AM CDT Inhaled Oxygen Concentration - - Weight 114.3 kg (252 lb) 09/05/2024 11:49 AM CDT Height 188 cm (6' 2) 09/05/2024 11:49 AM CDT Body Mass Index 32.35 09/05/2024 11:49 AM CDT Plan of Treatment Health Maintenance Due Date Last Done Comments Hepatitis C 1968 COVID-19 Vaccine ( season) 2025 02/16/2024, 03/12/2023, 02/02/2022, Additional history exists DTaP, Tdap and Td Vaccines (2 - Td or Tdap) 01/29/2025 01/29/2015 Pneumococcal Vaccine: 50+ Years Completed 07/30/2018, 01/29/2015 Zoster Vaccines Completed 08/31/2018, 06/29/2018 RSV Immunization or 60+ Years Completed 04/21/2023 PHQ-2 (Physician Yuhaaviatam) Completed 09/05/2024 Meningococcal B Vaccine Aged Out No l onger eligible based on patient's age to complete this topic Meningococcal Vaccine Aged Out No jennifer brendan eligible based on patient's age to complete this topic RSV Immunizations Under 20 Months Aged Out No longer eligible based on patient's age to complete this topic Insurance [facility] Care Teams Tacking Stitch Remover Relationship Specialty Start Date End Date Stef Dey MD [address] [place] [address] PCP - General INTERNAL MEDICINE 08/03/24
--- OUTSIDE RECORDS SUMMARY | 2025-02-13 11:29 | XMS_ITS | Clinical Summary ---
Author Organization [facility] [employer] [facility] Address [address] [facility] [place] [place] [address] Care Team Providers Care Negotiator Name Role Phone Unavailable Primary Care Provider [...] Take by mouth daily. Vitamin C&D Active atorvastatin (LIPITOR) 40 mg tablet Take 40 mg by mouth daily. Active Active Problems No known active problems Encounters Date Type Department Care Team Description 02/13/2025 10:15 AM CDT Office Visit [facility] Oncology and Hematology - [place] [address] [facility] [address] [address] Galen Velasquez MD Lymphocytosis (Primary Dx) 02/07/2025 External Device Data STL ABSTRACTION Provider, Abstract 01/24/2025 External Device Data STL ABSTRACTION Provider, Abstract 12/28/2024 External Device Data STL ABSTRACTION Provider, Abstract from Last 3 Months Family History Medical [...] on file Legal Sex Male 2:50 PM [employer] Gender Identity Not on file Sexual Orientation [...] 3.2 oz) 025 10:31 AM CDT Height 188 cm (6' 2) 07/20/2024 10:38 AM [employer]CHO[employer] DIRECTOR Body Mass Index 33.28 07/20/2024 10:38 AM [employer]CHO[employer] DIRECTOR Plan of Treatment Upcoming Encounters Date Type Department Care Team (Late st Contact Info) Description 08/11/2025 11:45 AM CDT Office Visit [facility] Oncology and Hematology - [place] [address] [facility] [address] [place] [address] Galen Velasquez MD [address] [facility] [address] [place] [address] Health Maintenance Due Date Last Done Comments DTAP/TDAP/TD VACCINES (1 - Tdap) 1969 PNEUMOCOCCAL VACCINE 50+ YEARS (1 of 1 - PCV) 03/05/19 98 ZOSTER VACCINE (1 of 2) 1998 RSV VACCINE (60+ or ) (1 - 1-dose 75+ series) 2023 Medicare [place]vantage ([place]) Prev entative Visit/Annual Wellness Visit 05/25/2024 INFLUENZA VACCINE (#1) 2024 01/27/2016 [place] [address] [facility] [address] [place] [address]
--- OUTSIDE RECORDS SUMMARY | 2025-02-13 11:29 | XMS_ITS | Clinical Summary ---
Author Organization [facility] Address [address] [place] [address] Care Team Providers Care Manager Immunology Name Role Phone Abdi Patel MD Primary Care Provider [phone] Source Comments [facility],non-owned Affiliates and Associated Physician Practices is amultiple site organization consisting of ambulatory clinics and hospital sitesin [place], [place], [place] and [place]. This disclosure is being madepursuant to the Care Everywhere program and may not contain all information available regarding this patient. Last updated 18.[facility] Immunizations Immunization Administration Dates Next Due HEP [...] MEDICARE AWV CALENDAR YEAR 2024 INFLUENZA VACCINE (#1) 2025 01/27/2016 HIB VACCINE Aged Out No [...] patient's age to [place] [address] [facility] MANAGED MEDICARE ADV [employer] MEDICARE ADV SELF PAY NO INSURANCE Member Subscriber Plan / Payer (Ef fective for All Dates) Name:Abdi Mace Member ID:Not on file Relation to Subscriber:Not on file Name:ABDI MACE Subscriber ID:Not on file (Home) Address: [address] [place] [address] [place] [address] Payer ID:Not on file Group ID:Not on file Type:Self Pay Address: [facility] Care Teams Manager Immunology Relationship Specialty Start Date End Date Abdi Patel MD [address] [place] [id number] PCP - General Internal Medicine 01/27/16
== END 2025-02-13 10:20 | disposition home or self-care (01) ==
LOC: ANHLAB 10:20
PROVIDERS: PCP Emergency Medicine; Visit Provider Internal Medicine Hematology & Oncology
DX: D72.820 Lymphocytosis (symptomatic) (principal)
CPT/HCPCS: 36415; 80047; 83615; 85025